=== PATIENT | male | born 1965 | race Caucasian/White ===

== ENCOUNTER 2018-12-07 13:59 | Inpatient (IN) | payer MEDICAID, OTHER ==
[~2018-12-07] VITALS: Ht 172.7 cm; Wt 58.5 kg
[2018-12-07] MEDS ORDERED: SODIUM CHLORIDE 0.9% 1,000 ML IV ONE (14:37)
--- NOTE | 2018-12-07 14:37 | NUR ---
bib [facility] general. history of lung cancer, non compliant with treatment, also history of epilepsy,
--- NOTE | 2018-12-07 14:39 | NUR ---
pt arrived from [facility] with a palmer catheter and 20G right AC IV
[2018-12-07] MEDS ORDERED: LORazepam 2 MG/ML, 1ML ONE (14:44)
--- NOTE | 2018-12-07 14:57 | NUR ---
urine sample sent. blood drawn.
--- NOTE | 2018-12-07 14:59 | NUR ---
FAMILY AT BS.
[2018-12-07] MEDS ORDERED: PLEASE ENTER ALLERGIES MC SCH (15:00)
[2018-12-07] MEDS ORDERED: LORazepam 2 MG/ML, 1ML IVPush ONE (15:00)
--- NOTE | 2018-12-07 15:13 | NUR ---
[facility] RPT FROM [facility]. ASSUMED PT CARE. PT CONFUSED BUT CONVERSES, FOLLOWS COMMANDS, WEAK T/O. VSS. IVF INFUSING W/O DIFFICULTY. MULTIPLE FAMILY MEMBERS AT BEDSIDE. OLDEST SON SUGEY WILL BE SPOKEPERSON FOR FAMILY. CALL LIGHT W/I REACH.
[2018-12-07 15:20] LABS: ALBUMIN 2.2 g/dL (3.4-5.0); ANION GAP 13 mmol/L (5-15); CALCIUM 7.3 mg/dL (8.5-10.1); CHLORIDE 101 mmol/L (98-107); CREATININE 1.16 mg/dL (0.7-1.3)
[2018-12-07 15:29] LABS: TROPONIN I 0.225 ng/mL (0.000-0.045)
[2018-12-07 15:33] LABS: MICROSCOPIC INDICATED
[2018-12-07 15:43] LABS: MEAN CORPUSCULAR VOLUME 102.8 fL (81-97); MEAN PLATELET VOLUME 11.4 fL (7.4-10.4); PLATELET COUNT 60 x10^3/uL (130-400); RED BLOOD COUNT 4.27 x10^6/uL (4.38-5.82); RED CELL DISTRIBUTION WIDTH 13.9 % (9.4-14.8)
[2018-12-07 15:49] LABS: BASOPHILS % (AUTO) 0 % (0-1); EOSINOPHILS % (AUTO) 0 % (1-7); LYMPHOCYTES # (AUTO) 0.32 x10^3/uL (1-3.4); LYMPHOCYTES % (AUTO) 10 % (22-44); MD MORPH REVIEW ONLY; MONOCYTES # (AUTO) 0.04 x10^3/uL (0.2-0.8); MONOCYTES % (AUTO) 1 % (2-9); NEUTROPHILS % (AUTO) 89 % (42-75)
[2018-12-07 15:54] LABS: CULTURE INDICATED? NO
[2018-12-07 15:54] LABS: <PLATELET ESTIMATE> DECREASED; LARGE PLATELETS 1+
--- NOTE | 2018-12-07 18:25 | NUR ---
SUGEY FRANCISCO CELL #[phone]
--- NOTE | 2018-12-07 18:51 | NUR ---
JAYMIE, DAUGHTER [phone]
--- NOTE | 2018-12-07 18:52 | NUR ---
WITH PT VERBAL APPROVAL I UPDATED PTS DAUGHTER TO STATUS AND POC. QUESTIONS ANSWERED.
--- NOTE | 2018-12-07 18:53 | NUR ---
SECURITY CONTACTED TO COME AND COLLECT PTS FONG FOR SAFE KEEPING
--- NOTE | 2018-12-07 19:17 | NUR ---
JONNAAR RPT TO [facility]
[2018-12-07 19:30] LABS: AMPHETAMINE SCREEN, URINE Negative (Negative); BARBITURATE SCREEN, URINE Negative (Negative); BENZODIAZEPINE SCREEN, URINE Negative (Negative); CANNABINOID SCREEN, URINE Negative (Negative); COCAINE SCREEN, URINE Negative (Negative); METHADONE SCREEN, URINE Negative (Negative); OPIATE SCREEN, URINE Negative (Negative)
[2018-12-07 20:24] VITALS: BP 113/68
[2018-12-07] MEDS ORDERED: ALUMINUM/MAG/SIMETHICONE 30 ML UDC PO PRN (20:30)
[2018-12-07] MEDS ORDERED: LABETALOL 5MG/ML, 20ML IV PRN (20:30)
[2018-12-07] MEDS ORDERED: ONDANSETRON 2MG/ML, 2ML IV PRN (20:30)
[2018-12-07] MEDS ORDERED: LORazepam 2 MG/ML, 1ML IV PRN ×4 (20:30)
[2018-12-07] MEDS: PIPERACILLIN/TAZO/PMX 3.375GM 50 ML IV SCH (21:58)
[2018-12-07] MEDS: POTASSIUM CHLORIDE 20 MEQ, MVI ADULT 10 ML, FOLIC ACID 1 MG, MAGNESIUM SULFATE 2 GM in ... IV SCH (23:12)
[2018-12-07] MEDS: HEPARIN 5,000 UNITS/ML, 1ML SQ SCH (23:13)
[2018-12-08] MEDS: LORazepam 2 MG/ML, 1ML IV PRN ×2 (01:39→09:42)
[2018-12-08 01:55] VITALS: BP 137/80
[2018-12-08] MEDS: PIPERACILLIN/TAZO/PMX 3.375GM 50 ML IV SCH ×4 (03:55→22:21)
[2018-12-08 04:30] LABS: ALANINE AMINOTRANSFERASE 57 U/L (12-78); ANION GAP 11 mmol/L (5-15); CALCIUM 7.2 mg/dL (8.5-10.1); CHLORIDE 106 mmol/L (98-107); CREATININE 0.72 mg/dL (0.7-1.3)
[2018-12-08 04:32] LABS: ALKALINE PHOSPHATASE 40 U/L (45-117); BILIRUBIN,TOTAL 0.7 mg/dL (0.2-1.0)
[2018-12-08 04:42] LABS: MEAN CORPUSCULAR HEMOGLOBIN 35.6 pg (27.5-34.5); MEAN CORPUSCULAR HGB CONC 34.4 g/dL (33.2-36.2); MEAN CORPUSCULAR VOLUME 103.5 fL (81-97); RED BLOOD COUNT 4.37 x10^6/uL (4.38-5.82); RED CELL DISTRIBUTION WIDTH 14.1 % (9.4-14.8)
[2018-12-08 04:45] LABS: MD YES; MEAN PLATELET VOLUME 11.9 fL (7.4-10.4); PLATELET COUNT 71 x10^3/uL (130-400)
[2018-12-08 04:48] LABS: LYMPH#(MANUAL) 0.18 x10^3/uL (1-3.4); LYMPHS% (MANUAL) 10 % (22-44); MONOS#(MANUAL) 0.14 x10^3/uL (0.3-2.7); MONOS% (MANUAL) 8 % (2-9); SEG#(MANUAL) 1.48 x10^3/uL (1.8-6.8); SEGS% (MANUAL) 82 % (42-75)
[2018-12-08 04:50] LABS: <PLATELET ESTIMATE> DECREASED; ECHINOCYTES 1+; LARGE PLATELETS 1+
[2018-12-08] MEDS: HEPARIN 5,000 UNITS/ML, 1ML SQ SCH ×2 (05:54→12:08)
[2018-12-08] MEDS: SODIUM CHLORIDE 0.9% 1,000 ML IV SCH ×4 (06:21→21:54)
[2018-12-08 07:03] VITALS: BP 108/72
[2018-12-08] MEDS ORDERED: POTASSIUM CHLORIDE 40 MEQ in SODIUM CHLORIDE 0.9% 500 ML IV ONE (08:30)
[2018-12-08] MEDS: FOLIC ACID 1 MG TABLET PO SCH (09:34)
[2018-12-08] MEDS: THIAMINE 100MG TABLET PO SCH ×2 (09:34→21:00)
[2018-12-08] MEDS ORDERED: SODIUM CHLORIDE 0.9% 1,000ML IVBOLUS ONE (11:00)
[2018-12-08] MEDS: DOXYCYCLINE 100 MG in DEXTROSE 5% 250 ML IV SCH (11:10)
[2018-12-08 13:51] VITALS: BP 101/65
[2018-12-08 16:59] LABS: OCCULT BLOOD POSITIVE (NEGATIVE)
[2018-12-08] MEDS ORDERED: SODIUM CHLORIDE 0.9% 500 ML IV SCH (17:00)
[2018-12-08 18:44] LABS: INTERNATIONAL NORMALIZED RATIO 1.04 (0.93-1.1); PROTHROMBIN TIME 10.9 Seconds (9.6-11.5)
[2018-12-08 19:11] LABS: THYROID STIMULATING HORMONE 0.751 mIU/L (0.358-3.740)
[2018-12-08 19:45] VITALS: BP 110/75
[2018-12-08] MEDS: PANTOPRAZOLE 40 MG IV IVPush SCH (21:52)
[2018-12-08] MEDS: POTASSIUM CHLORIDE 20 MEQ, MVI ADULT 10 ML, FOLIC ACID 1 MG, MAGNESIUM SULFATE 2 GM in ... IV SCH (21:53)
[2018-12-09] MEDS: DOXYCYCLINE 100 MG in DEXTROSE 5% 250 ML IV SCH ×2 (00:13→12:07)
[2018-12-09 02:40] VITALS: BP 120/71
[2018-12-09] MEDS: PIPERACILLIN/TAZO/PMX 3.375GM 50 ML IV SCH ×3 (04:52→17:52)
[2018-12-09 06:03] LABS: ALANINE AMINOTRANSFERASE 43 U/L (12-78); ALBUMIN 1.7 g/dL (3.4-5.0); ANION GAP 6 mmol/L (5-15); CALCIUM 6.9 mg/dL (8.5-10.1); CHLORIDE 117 mmol/L (98-107); CREATININE 0.67 mg/dL (0.7-1.3)
[2018-12-09 06:05] LABS: ALKALINE PHOSPHATASE 38 U/L (45-117); BILIRUBIN,TOTAL 0.7 mg/dL (0.2-1.0); TOTAL PROTEIN 4.9 g/dL (6.4-8.2)
[2018-12-09 06:18] LABS: MEAN CORPUSCULAR HEMOGLOBIN 35.3 pg (27.5-34.5); MEAN CORPUSCULAR HGB CONC 33.8 g/dL (33.2-36.2); MEAN CORPUSCULAR VOLUME 104.4 fL (81-97); MEAN PLATELET VOLUME 10.9 fL (7.4-10.4); PLATELET COUNT 60 x10^3/uL (130-400); RED BLOOD COUNT 3.26 x10^6/uL (4.38-5.82); RED CELL DISTRIBUTION WIDTH 14.6 % (9.4-14.8)
[2018-12-09] MEDS: PANTOPRAZOLE 40 MG IV IVPush SCH ×2 (06:18→22:13)
[2018-12-09 06:49] LABS: MD YES
[2018-12-09 06:52] LABS: MONOS#(MANUAL) 0.09 x10^3/uL (0.3-2.7); MONOS% (MANUAL) 6 % (2-9)
[2018-12-09 06:53] LABS: LYMPH#(MANUAL) 0.26 x10^3/uL (1-3.4); LYMPHS% (MANUAL) 17 % (22-44); PMNS WITH VACUOLES 1+; SEG#(MANUAL) 1.16 x10^3/uL (1.8-6.8); SEGS% (MANUAL) 77 % (42-75)
[2018-12-09 06:54] LABS: <PLATELET ESTIMATE> DECREASED; LARGE PLATELETS 1+
[2018-12-09] MEDS ORDERED: D5%-0.45% NACL+KCL 10MEQ 1,000 ML IV SCH (07:30)
[2018-12-09 07:50] VITALS: BP 116/68
[2018-12-09] MEDS: FOLIC ACID 1 MG TABLET PO SCH (10:02)
[2018-12-09] MEDS: THIAMINE 100MG TABLET PO SCH ×2 (10:02→21:00)
[2018-12-09] MEDS ORDERED: OCTREOTIDE 50 MCG/ML, 1ML (0.05MG/ML) IVPush ONE (14:30)
[2018-12-09 14:48] VITALS: BP 112/64
[2018-12-09] MEDS: OCTREOTIDE 500 MCG in SODIUM CHLORIDE 0.9% 249 ML IV SCH (15:19)
[2018-12-09 18:13] LABS: MD YES; MEAN CORPUSCULAR HEMOGLOBIN 35.6 pg (27.5-34.5); MEAN CORPUSCULAR HGB CONC 34.3 g/dL (33.2-36.2); MEAN CORPUSCULAR VOLUME 103.6 fL (81-97); MEAN PLATELET VOLUME 11.5 fL (7.4-10.4); PLATELET COUNT 62 x10^3/uL (130-400); RED BLOOD COUNT 3.27 x10^6/uL (4.38-5.82); RED CELL DISTRIBUTION WIDTH 14.9 % (9.4-14.8)
[2018-12-09 18:19] LABS: LYMPHS% (MANUAL) 15 % (22-44); MONOS#(MANUAL) 0.16 x10^3/uL (0.3-2.7); MONOS% (MANUAL) 8 % (2-9); NRBC % (MANUAL) 1 % (0-1); REACTIVE LYMPHS # (MANUAL) 0.02 x10^3/uL (0-0); REACTIVE LYMPHS % (MANUAL) 1 % (0-0); SEG#(MANUAL) 1.52 x10^3/uL (1.8-6.8); SEGS% (MANUAL) 76 % (42-75)
[2018-12-09 18:20] LABS: <PLATELET ESTIMATE> DECREASED; LARGE PLATELETS 1+
[2018-12-09 20:30] VITALS: BP 97/60
[2018-12-09 21:30] LABS: MEAN CORPUSCULAR HGB CONC 34.9 g/dL (33.2-36.2); MEAN CORPUSCULAR VOLUME 103.2 fL (81-97); MEAN PLATELET VOLUME 11.2 fL (7.4-10.4); PLATELET COUNT 57 x10^3/uL (130-400); RED BLOOD COUNT 2.94 x10^6/uL (4.38-5.82); RED CELL DISTRIBUTION WIDTH 14.8 % (9.4-14.8)
[2018-12-09 22:06] LABS: BASOPHILS % (AUTO) 0 % (0-1); EOSINOPHILS # (AUTO) 0.01 x10^3/uL (0-0.4); EOSINOPHILS % (AUTO) 1 % (1-7); LYMPHOCYTES # (AUTO) 0.29 x10^3/uL (1-3.4); LYMPHOCYTES % (AUTO) 15 % (22-44); MD MORPH REVIEW ONLY; MONOCYTES # (AUTO) 0.09 x10^3/uL (0.2-0.8); MONOCYTES % (AUTO) 5 % (2-9); NEUTROPHILS # (AUTO) 1.51 x10^3/uL (1.8-6.8); NEUTROPHILS % (AUTO) 79 % (42-75)
[2018-12-09 22:07] LABS: <PLATELET ESTIMATE> DECREASED; LARGE PLATELETS 1+
[2018-12-09] MEDS: POTASSIUM CHLORIDE 20 MEQ, MVI ADULT 10 ML, FOLIC ACID 1 MG, MAGNESIUM SULFATE 2 GM in ... IV SCH (22:13)
[2018-12-10 00:10] VITALS: BP 96/57
[2018-12-10] MEDS: PIPERACILLIN/TAZO/PMX 3.375GM 50 ML IV SCH ×3 (00:54→18:22)
[2018-12-10] MEDS: OCTREOTIDE 500 MCG in SODIUM CHLORIDE 0.9% 249 ML IV SCH (01:31)
[2018-12-10] MEDS: DOXYCYCLINE 100 MG in DEXTROSE 5% 250 ML IV SCH ×2 (01:32→11:35)
[2018-12-10 06:04] LABS: ALANINE AMINOTRANSFERASE 45 U/L (12-78); ALBUMIN 1.6 g/dL (3.4-5.0); ANION GAP 3 mmol/L (5-15); CALCIUM 6.8 mg/dL (8.5-10.1); CHLORIDE 119 mmol/L (98-107)
[2018-12-10 06:07] LABS: ALKALINE PHOSPHATASE 40 U/L (45-117); BILIRUBIN,TOTAL 0.6 mg/dL (0.2-1.0)
[2018-12-10 06:50] VITALS: BP 100/62
[2018-12-10 07:00] LABS: BASOPHILS % (AUTO) 0 % (0-1); EOSINOPHILS # (AUTO) 0.03 x10^3/uL (0-0.4); EOSINOPHILS % (AUTO) 1 % (1-7); LYMPHOCYTES % (AUTO) 21 % (22-44); MD SCAN; MEAN CORPUSCULAR HEMOGLOBIN 35.8 pg (27.5-34.5); MEAN CORPUSCULAR HGB CONC 34.6 g/dL (33.2-36.2); MEAN CORPUSCULAR VOLUME 103.6 fL (81-97); MEAN PLATELET VOLUME 11.1 fL (7.4-10.4); MONOCYTES % (AUTO) 4 % (2-9); NEUTROPHILS # (AUTO) 1.76 x10^3/uL (1.8-6.8); NEUTROPHILS % (AUTO) 74 % (42-75); PLATELET COUNT 55 x10^3/uL (130-400); RED BLOOD COUNT 3.04 x10^6/uL (4.38-5.82)
[2018-12-10] MEDS ORDERED: D5%-0.45% NACL+KCL 10MEQ 1,000 ML IV SCH (07:30)
[2018-12-10] MEDS: PANTOPRAZOLE 40 MG IV IVPush SCH ×2 (08:32→22:35)
[2018-12-10] MEDS: THIAMINE 100MG TABLET PO SCH ×2 (09:00→21:00)
[2018-12-10] MEDS: FOLIC ACID 1 MG TABLET PO SCH (09:00)
[2018-12-10 11:36] LABS: MEAN CORPUSCULAR HEMOGLOBIN 34.6 pg (27.5-34.5); MEAN CORPUSCULAR HGB CONC 33.6 g/dL (33.2-36.2); MEAN PLATELET VOLUME 11.6 fL (7.4-10.4); PLATELET COUNT 59 x10^3/uL (130-400); RED BLOOD COUNT 3.13 x10^6/uL (4.38-5.82); RED CELL DISTRIBUTION WIDTH 15.5 % (9.4-14.8)
[2018-12-10 12:42] LABS: BASOPHILS # (AUTO) 0.01 x10^3/uL (0-0.1); BASOPHILS % (AUTO) 1 % (0-1); EOSINOPHILS # (AUTO) 0.03 x10^3/uL (0-0.4); EOSINOPHILS % (AUTO) 1 % (1-7); LYMPHOCYTES # (AUTO) 0.55 x10^3/uL (1-3.4); LYMPHOCYTES % (AUTO) 20 % (22-44); MD SCAN; MONOCYTES # (AUTO) 0.17 x10^3/uL (0.2-0.8); MONOCYTES % (AUTO) 6 % (2-9); NEUTROPHILS # (AUTO) 1.98 x10^3/uL (1.8-6.8); NEUTROPHILS % (AUTO) 72 % (42-75)
[2018-12-10 13:55] VITALS: BP 102/68
[2018-12-10] MEDS ORDERED: PHENYLEPHRINE 10 MG/ML ONE (14:14)
[2018-12-10] MEDS ORDERED: PROPOFOL 10 MG/ML, 20ML ONE (14:14)
[2018-12-10] MEDS ORDERED: LIDOCAINE-MPF 1%, 2ML ONE (14:14)
[2018-12-10] MEDS ORDERED: EPINEPHRINE SYRINGE 0.1 MG/ML, 10ML ONE (14:46)
[2018-12-10] MEDS ORDERED: MORPHINE SULFATE 4 MG/ML, 1ML IVPush PRN (15:00)
[2018-12-10] MEDS ORDERED: ONDANSETRON 2MG/ML, 2ML IV PRN (15:00)
[2018-12-10] MEDS ORDERED: HALOPERIDOL 5 MG/ML IV PRN (15:00)
[2018-12-10] MEDS ORDERED: ALBUTEROL SULFATE 2.5 MG/3 ML NPPB PRN (15:00)
[2018-12-10] MEDS ORDERED: PROMETHAZINE 25 MG/ML, 1ML IV PRN (15:00)
[2018-12-10] MEDS ORDERED: EPHEDRINE 50 MG/ML, 1ML IVPush PRN (15:00)
[2018-12-10] MEDS ORDERED: MEPERIDINE/PF 25MG/0.5ML IVPush PRN (15:00)
[2018-12-10] MEDS ORDERED: DIAZEPAM 5 MG/ML, 2ML IVPush PRN (15:00)
[2018-12-10] MEDS ORDERED: PROMETHAZINE 12.5 MG SUPP PR PRN (15:00)
[2018-12-10] MEDS ORDERED: LABETALOL 5MG/ML, 20ML IV PRN (15:00)
[2018-12-10] MEDS ORDERED: ONDANSETRON ODT 8 MG PO PRN (15:00)
[2018-12-10] MEDS ORDERED: MIDAZOLAM 1 MG/ML, 2ML IV PRN (15:00)
[2018-12-10] MEDS ORDERED: OXYcodone 5 MG/5 ML ORAL.SOL UDC PO PRN (15:00)
[2018-12-10] MEDS ORDERED: HYDROmorphone 2 MG/ML, 1ML IVPush PRN (15:00)
[2018-12-10] MEDS ORDERED: hydrALAzine 20 MG/ML, 1ML IV PRN (15:00)
[2018-12-10] MEDS ORDERED: FENTANYL PF 100 MCG/2ML IV PRN (15:00)
[2018-12-10] MEDS ORDERED: LACTATED RINGERS 1,000 ML IVBOLUS ONE (15:00)
--- NOTE | 2018-12-10 17:20 | NUR ---
REC: NPO with IV fluids and meds for now due to high risk of aspiration Addendum: 12/10/18 at 1720 by Ramila YOUNGBLOOD Amended: Links added.
[2018-12-10 17:29] LABS: MEAN CORPUSCULAR HEMOGLOBIN 34.8 pg (27.5-34.5); MEAN CORPUSCULAR HGB CONC 33.7 g/dL (33.2-36.2); MEAN CORPUSCULAR VOLUME 103.4 fL (81-97); MEAN PLATELET VOLUME 11.4 fL (7.4-10.4); PLATELET COUNT 56 x10^3/uL (130-400)
[2018-12-10 17:41] LABS: MD YES
[2018-12-10 18:01] LABS: EOS#(MANUAL) 0.02 x10^3/uL (0.0-0.4); EOS% (MANUAL) 1 % (1-7); LYMPHS% (MANUAL) 21 % (22-44); MONOS#(MANUAL) 0.14 x10^3/uL (0.3-2.7); MONOS% (MANUAL) 6 % (2-9); SEG#(MANUAL) 1.73 x10^3/uL (1.8-6.8); SEGS% (MANUAL) 72 % (42-75)
[2018-12-10 18:04] LABS: POLYCHROMASIA 1+
[2018-12-10 18:05] LABS: <PLATELET ESTIMATE> DECREASED
[2018-12-10 18:06] LABS: LARGE PLATELETS 1+
[2018-12-10 19:00] VITALS: BP 119/78
[2018-12-10] MEDS: POTASSIUM CHLORIDE 20 MEQ, MVI ADULT 10 ML, FOLIC ACID 1 MG, MAGNESIUM SULFATE 2 GM in ... IV SCH (20:09)
[2018-12-10 21:47] LABS: MEAN CORPUSCULAR HEMOGLOBIN 35.9 pg (27.5-34.5); MEAN CORPUSCULAR VOLUME 102.8 fL (81-97); MEAN PLATELET VOLUME 11.8 fL (7.4-10.4); PLATELET COUNT 54 x10^3/uL (130-400); RED BLOOD COUNT 2.86 x10^6/uL (4.38-5.82); RED CELL DISTRIBUTION WIDTH 15.2 % (9.4-14.8)
[2018-12-10 23:31] LABS: MD YES
[2018-12-10 23:39] LABS: EOS#(MANUAL) 0.05 x10^3/uL (0.0-0.4); EOS% (MANUAL) 2 % (1-7); LYMPH#(MANUAL) 0.37 x10^3/uL (1-3.4); LYMPHS% (MANUAL) 16 % (22-44); MONOS#(MANUAL) 0.05 x10^3/uL (0.3-2.7); MONOS% (MANUAL) 2 % (2-9); NRBC % (MANUAL) 2 % (0-1); REACTIVE LYMPHS # (MANUAL) 0.07 x10^3/uL (0-0); REACTIVE LYMPHS % (MANUAL) 3 % (0-0); SEG#(MANUAL) 1.77 x10^3/uL (1.8-6.8); SEGS% (MANUAL) 77 % (42-75)
[2018-12-10 23:42] LABS: POLYCHROMASIA 1+
[2018-12-10 23:44] LABS: <PLATELET ESTIMATE> DECREASED; LARGE PLATELETS 1+
[2018-12-11] MEDS: DOXYCYCLINE 100 MG in DEXTROSE 5% 250 ML IV SCH ×3 (00:23→23:44)
[2018-12-11 01:00] VITALS: BP 113/59
[2018-12-11] MEDS: PIPERACILLIN/TAZO/PMX 3.375GM 50 ML IV SCH ×4 (01:27→19:53)
[2018-12-11 07:02] VITALS: BP 118/63
[2018-12-11 07:03] VITALS: BP 117/68
[2018-12-11 07:08] LABS: MEAN CORPUSCULAR HEMOGLOBIN 35.8 pg (27.5-34.5); MEAN CORPUSCULAR VOLUME 102.3 fL (81-97); MEAN PLATELET VOLUME 10.9 fL (7.4-10.4); RED BLOOD COUNT 2.93 x10^6/uL (4.38-5.82); RED CELL DISTRIBUTION WIDTH 15.2 % (9.4-14.8)
[2018-12-11 07:14] LABS: ALBUMIN 1.5 g/dL (3.4-5.0); ANION GAP 4 mmol/L (5-15); CALCIUM 6.4 mg/dL (8.5-10.1); CHLORIDE 116 mmol/L (98-107)
[2018-12-11 07:18] LABS: ALANINE AMINOTRANSFERASE 39 U/L (12-78); ALKALINE PHOSPHATASE 44 U/L (45-117); BILIRUBIN,TOTAL 0.9 mg/dL (0.2-1.0); TOTAL PROTEIN 4.6 g/dL (6.4-8.2)
[2018-12-11 07:26] LABS: PLATELET COUNT 48 x10^3/uL (130-400)
[2018-12-11 07:37] LABS: MD YES
[2018-12-11 07:41] LABS: BAND#(MANUAL) 0.02 x10^3/uL; BANDS%(MANUAL) 1 % (0-7); EOS#(MANUAL) 0.05 x10^3/uL (0.0-0.4); EOS% (MANUAL) 2 % (1-7); LYMPH#(MANUAL) 0.32 x10^3/uL (1-3.4); LYMPHS% (MANUAL) 14 % (22-44); MONOS#(MANUAL) 0.14 x10^3/uL (0.3-2.7); MONOS% (MANUAL) 6 % (2-9); MYELOCYTES# (MANUAL) 0.02 x10^3/uL (0-0); MYELOCYTES% (MANUAL) 1 % (0-0); NRBC % (MANUAL) 2 % (0-1); SEG#(MANUAL) 1.75 x10^3/uL (1.8-6.8); SEGS% (MANUAL) 76 % (42-75)
[2018-12-11 07:43] LABS: PMNS WITH VACUOLES 1+
[2018-12-11 07:44] LABS: <PLATELET ESTIMATE> DECREASED
[2018-12-11 07:45] LABS: LARGE PLATELETS 1+
[2018-12-11] MEDS: FOLIC ACID 1 MG TABLET PO SCH (09:00)
[2018-12-11] MEDS: THIAMINE 100MG TABLET PO SCH ×2 (09:00→21:00)
[2018-12-11] MEDS: PANTOPRAZOLE 40 MG IV IVPush SCH ×2 (11:35→21:19)
[2018-12-11 11:53] LABS: MEAN CORPUSCULAR HEMOGLOBIN 35.5 pg (27.5-34.5); MEAN CORPUSCULAR HGB CONC 33.8 g/dL (33.2-36.2); MEAN CORPUSCULAR VOLUME 104.8 fL (81-97); RED BLOOD COUNT 3.19 x10^6/uL (4.38-5.82); RED CELL DISTRIBUTION WIDTH 15.3 % (9.4-14.8)
[2018-12-11 11:58] LABS: MEAN PLATELET VOLUME 10.2 fL (7.4-10.4)
[2018-12-11 11:59] LABS: PLATELET COUNT 36 x10^3/uL (130-400)
[2018-12-11 12:01] LABS: MD YES
[2018-12-11 12:05] LABS: BAND#(MANUAL) 0.08 x10^3/uL; BANDS%(MANUAL) 3 % (0-7); EOS#(MANUAL) 0.08 x10^3/uL (0.0-0.4); EOS% (MANUAL) 3 % (1-7); LYMPHS% (MANUAL) 12 % (22-44); MONOS#(MANUAL) 0.05 x10^3/uL (0.3-2.7); MONOS% (MANUAL) 2 % (2-9); NRBC % (MANUAL) 2 % (0-1); REACTIVE LYMPHS % (MANUAL) 4 % (0-0); SEGS% (MANUAL) 76 % (42-75)
[2018-12-11 12:07] LABS: <PLATELET ESTIMATE> DECREASED; LARGE PLATELETS 1+
[2018-12-11 13:40] VITALS: BP 122/72
[2018-12-11] MEDS: D5%-0.45% NACL+KCL 10MEQ 1,000 ML IV SCH ×3 (15:27→23:44)
[2018-12-11 17:07] LABS: MEAN CORPUSCULAR HGB CONC 33.1 g/dL (33.2-36.2); MEAN CORPUSCULAR VOLUME 102.7 fL (81-97); MEAN PLATELET VOLUME 12.3 fL (7.4-10.4); PLATELET COUNT 54 x10^3/uL (130-400); RED BLOOD COUNT 3.34 x10^6/uL (4.38-5.82); RED CELL DISTRIBUTION WIDTH 15.6 % (9.4-14.8)
[2018-12-11 17:09] LABS: MD YES
[2018-12-11 17:15] LABS: BAND#(MANUAL) 0.05 x10^3/uL; BANDS%(MANUAL) 2 % (0-7); EOS#(MANUAL) 0.05 x10^3/uL (0.0-0.4); EOS% (MANUAL) 2 % (1-7); LYMPH#(MANUAL) 0.48 x10^3/uL (1-3.4); LYMPHS% (MANUAL) 20 % (22-44); MONOS% (MANUAL) 4 % (2-9); NRBC % (MANUAL) 1 % (0-1); REACTIVE LYMPHS # (MANUAL) 0.02 x10^3/uL (0-0); REACTIVE LYMPHS % (MANUAL) 1 % (0-0); SEGS% (MANUAL) 71 % (42-75)
[2018-12-11 17:16] LABS: PMNS WITH VACUOLES 1+; SMUDGE CELLS 1+; TOXIC GRAN 1+
[2018-12-11 17:17] LABS: <PLATELET ESTIMATE> DECREASED; HYPOCHROMIA 1+; LARGE PLATELETS 1+
[2018-12-11 20:20] VITALS: BP 129/64
[2018-12-11 21:15] LABS: MEAN CORPUSCULAR HEMOGLOBIN 34.4 pg (27.5-34.5); MEAN CORPUSCULAR HGB CONC 32.7 g/dL (33.2-36.2); MEAN CORPUSCULAR VOLUME 105.2 fL (81-97); MEAN PLATELET VOLUME 11.3 fL (7.4-10.4); PLATELET COUNT 55 x10^3/uL (130-400); RED BLOOD COUNT 3.21 x10^6/uL (4.38-5.82); RED CELL DISTRIBUTION WIDTH 15.4 % (9.4-14.8)
[2018-12-11] MEDS: POTASSIUM CHLORIDE 20 MEQ, MVI ADULT 10 ML, FOLIC ACID 1 MG, MAGNESIUM SULFATE 2 GM in ... IV SCH (21:19)
[2018-12-11 22:18] LABS: BASOPHILS # (AUTO) 0.03 x10^3/uL (0-0.1); BASOPHILS % (AUTO) 1 % (0-1); EOSINOPHILS # (AUTO) 0.03 x10^3/uL (0-0.4); EOSINOPHILS % (AUTO) 1 % (1-7); LYMPHOCYTES # (AUTO) 0.97 x10^3/uL (1-3.4); LYMPHOCYTES % (AUTO) 30 % (22-44); MD SCAN; MONOCYTES # (AUTO) 0.15 x10^3/uL (0.2-0.8); MONOCYTES % (AUTO) 5 % (2-9); NEUTROPHILS % (AUTO) 64 % (42-75)
[2018-12-12 00:20] VITALS: BP 126/88
[2018-12-12] MEDS: PIPERACILLIN/TAZO/PMX 3.375GM 50 ML IV SCH ×4 (01:30→20:08)
[2018-12-12 05:04] LABS: MEAN CORPUSCULAR HEMOGLOBIN 35.6 pg (27.5-34.5); MEAN CORPUSCULAR HGB CONC 34.6 g/dL (33.2-36.2); MEAN CORPUSCULAR VOLUME 102.9 fL (81-97); MEAN PLATELET VOLUME 12.1 fL (7.4-10.4); PLATELET COUNT 50 x10^3/uL (130-400); RED BLOOD COUNT 3.23 x10^6/uL (4.38-5.82); RED CELL DISTRIBUTION WIDTH 14.9 % (9.4-14.8)
[2018-12-12 05:12] LABS: ALBUMIN 1.5 g/dL (3.4-5.0); ANION GAP 5 mmol/L (5-15); CALCIUM 6.6 mg/dL (8.5-10.1); CHLORIDE 112 mmol/L (98-107)
[2018-12-12 05:18] LABS: ALANINE AMINOTRANSFERASE 37 U/L (12-78); ALKALINE PHOSPHATASE 57 U/L (45-117); BILIRUBIN,TOTAL 1.2 mg/dL (0.2-1.0); CREATININE 0.65 mg/dL (0.7-1.3); TOTAL PROTEIN 5.3 g/dL (6.4-8.2)
[2018-12-12 05:59] LABS: MD YES
[2018-12-12 06:02] LABS: BAND#(MANUAL) 0.12 x10^3/uL; BANDS%(MANUAL) 4 % (0-7); EOS#(MANUAL) 0.06 x10^3/uL (0.0-0.4); EOS% (MANUAL) 2 % (1-7); LYMPHS% (MANUAL) 16 % (22-44); MONOS#(MANUAL) 0.22 x10^3/uL (0.3-2.7); MONOS% (MANUAL) 7 % (2-9); NRBC % (MANUAL) 1 % (0-1); REACTIVE LYMPHS # (MANUAL) 0.06 x10^3/uL (0-0); REACTIVE LYMPHS % (MANUAL) 2 % (0-0); SEG#(MANUAL) 2.14 x10^3/uL (1.8-6.8); SEGS% (MANUAL) 69 % (42-75)
[2018-12-12 06:03] LABS: PMNS WITH VACUOLES 1+; SMUDGE CELLS 1+; TOXIC GRAN 1+
[2018-12-12 06:06] LABS: <PLATELET ESTIMATE> DECREASED
[2018-12-12 06:09] LABS: POLYCHROMASIA 1+
[2018-12-12] MEDS ORDERED: POTASSIUM CHLORIDE 40 MEQ in SODIUM CHLORIDE 0.9% 500 ML IV ONE ×3 (07:00→13:00)
[2018-12-12] MEDS: FOLIC ACID 1 MG TABLET PO SCH (07:17)
[2018-12-12] MEDS: THIAMINE 100MG TABLET PO SCH ×2 (07:18→20:10)
[2018-12-12] MEDS ORDERED: D5%-0.45% NACL+KCL 10MEQ 1,000 ML IV SCH (07:30)
[2018-12-12 07:42] VITALS: BP 145/70
[2018-12-12] MEDS: PANTOPRAZOLE 40 MG IV IVPush SCH ×2 (10:38→22:27)
[2018-12-12] MEDS ORDERED: PHARMACOKINETIC MONITORING MC PRN (11:00)
[2018-12-12] MEDS ORDERED: PHARMACOKINETIC CONSULTATION MC ONE (11:00)
[2018-12-12] MEDS ORDERED: VANCOMYCIN PER PHARMACY MC PRN (11:00)
[2018-12-12] MEDS: VANCOMYCIN 1,400 MG in SODIUM CHLORIDE 0.9% 250 ML IV SCH ×2 (11:45→23:41)
[2018-12-12] MEDS ORDERED: SINCALIDE (KINEVAC) 5 MCG ONE (11:49)
[2018-12-12 12:15] VITALS: BP 126/70
[2018-12-12] MEDS: DOXYCYCLINE 100 MG in DEXTROSE 5% 250 ML IV SCH (12:18)
[2018-12-12 19:42] VITALS: BP 121/73
[2018-12-12] MEDS: POTASSIUM CHLORIDE 20 MEQ, MVI ADULT 10 ML, FOLIC ACID 1 MG, MAGNESIUM SULFATE 2 GM in ... IV SCH (21:22)
[2018-12-12] MEDS: D5%-0.45% NACL+KCL 10MEQ 1,000 ML IV SCH (22:04)
[2018-12-13] MEDS: DOXYCYCLINE 100 MG in DEXTROSE 5% 250 ML IV SCH ×2 (00:23→12:24)
[2018-12-13 01:26] VITALS: BP 127/74
[2018-12-13] MEDS: PIPERACILLIN/TAZO/PMX 3.375GM 50 ML IV SCH ×4 (02:11→21:03)
[2018-12-13 07:04] LABS: ALBUMIN 1.3 g/dL (3.4-5.0); ANION GAP 6 mmol/L (5-15); CALCIUM 6.4 mg/dL (8.5-10.1); CHLORIDE 117 mmol/L (98-107)
[2018-12-13 07:05] VITALS: BP 139/76
[2018-12-13 07:10] LABS: ALANINE AMINOTRANSFERASE 38 U/L (12-78); ALKALINE PHOSPHATASE 70 U/L (45-117); TOTAL PROTEIN 5.4 g/dL (6.4-8.2)
[2018-12-13] MEDS: FOLIC ACID 1 MG TABLET PO SCH (09:00)
[2018-12-13] MEDS: THIAMINE 100MG TABLET PO SCH ×2 (09:00→21:02)
[2018-12-13 09:35] LABS: MEAN CORPUSCULAR HEMOGLOBIN 34.7 pg (27.5-34.5); MEAN CORPUSCULAR HGB CONC 34.1 g/dL (33.2-36.2); MEAN CORPUSCULAR VOLUME 101.7 fL (81-97); MEAN PLATELET VOLUME 11.7 fL (7.4-10.4); RED BLOOD COUNT 3.09 x10^6/uL (4.38-5.82); RED CELL DISTRIBUTION WIDTH 15.5 % (9.4-14.8)
[2018-12-13 09:38] LABS: BASOPHILS % (AUTO) 0 % (0-1); EOSINOPHILS # (AUTO) 0.03 x10^3/uL (0-0.4); EOSINOPHILS % (AUTO) 1 % (1-7); LYMPHOCYTES # (AUTO) 1.15 x10^3/uL (1-3.4); LYMPHOCYTES % (AUTO) 26 % (22-44); MD SCAN; MONOCYTES # (AUTO) 0.12 x10^3/uL (0.2-0.8); MONOCYTES % (AUTO) 3 % (2-9); NEUTROPHILS # (AUTO) 3.19 x10^3/uL (1.8-6.8); NEUTROPHILS % (AUTO) 71 % (42-75)
[2018-12-13 09:39] LABS: PLATELET COUNT 44 x10^3/uL (130-400)
[2018-12-13] MEDS ORDERED: GADOBUTROL 7.5 MMOL/7.5 ML PFS ONE (11:25)
[2018-12-13] MEDS: PANTOPRAZOLE 40 MG IV IVPush SCH ×2 (12:24→23:46)
[2018-12-13 13:12] VITALS: BP 129/70
[2018-12-13] MEDS: VANCOMYCIN 1,400 MG in SODIUM CHLORIDE 0.9% 250 ML IV SCH (13:40)
[2018-12-13] MEDS: LACTULOSE 10 GM/15 ML UDC PO SCH ×2 (15:30→21:02)
[2018-12-13] MEDS: D5%-0.45% NACL+KCL 10MEQ 1,000 ML IV SCH (17:59)
[2018-12-13 19:03] VITALS: BP 126/69
[2018-12-13] MEDS ORDERED: ZIPRASIDONE 20 MG INJ IM ONE (22:00)
[2018-12-13] MEDS: POTASSIUM CHLORIDE 20 MEQ, MVI ADULT 10 ML, FOLIC ACID 1 MG, MAGNESIUM SULFATE 2 GM in ... IV SCH (23:36)
[2018-12-14] MEDS: DOXYCYCLINE 100 MG in DEXTROSE 5% 250 ML IV SCH ×2 (00:27→16:24)
[2018-12-14 00:46] VITALS: BP 112/67
[2018-12-14] MEDS: VANCOMYCIN 1,400 MG in SODIUM CHLORIDE 0.9% 250 ML IV SCH ×3 (01:37→23:54)
[2018-12-14] MEDS: PIPERACILLIN/TAZO/PMX 3.375GM 50 ML IV SCH ×5 (03:19→20:12)
[2018-12-14] MEDS: LACTULOSE 10 GM/15 ML UDC PO SCH (08:07)
[2018-12-14 08:38] VITALS: BP 129/71
[2018-12-14] MEDS: THIAMINE 100MG TABLET PO SCH ×2 (09:00→20:12)
[2018-12-14] MEDS ORDERED: LACTULOSE 10 GM/15 ML UDC PO PRN (09:00)
[2018-12-14] MEDS: FOLIC ACID 1 MG TABLET PO SCH (09:00)
[2018-12-14] MEDS: PANTOPRAZOLE 40 MG IV IVPush SCH (11:23)
[2018-12-14 12:09] VITALS: BP 115/66
[2018-12-14 12:10] LABS: CHLORIDE 113 mmol/L (98-107)
[2018-12-14 12:20] LABS: ALANINE AMINOTRANSFERASE 31 U/L (12-78); ALBUMIN 1.4 g/dL (3.4-5.0); ALKALINE PHOSPHATASE 69 U/L (45-117); ANION GAP 6 mmol/L (5-15); BILIRUBIN,TOTAL 1.2 mg/dL (0.2-1.0); CALCIUM 6.5 mg/dL (8.5-10.1); CREATININE 0.51 mg/dL (0.7-1.3); TOTAL PROTEIN 5.5 g/dL (6.4-8.2)
[2018-12-14 12:27] LABS: MEAN CORPUSCULAR HGB CONC 33.6 g/dL (33.2-36.2); MEAN CORPUSCULAR VOLUME 101.2 fL (81-97); MEAN PLATELET VOLUME 12.8 fL (7.4-10.4); RED BLOOD COUNT 2.89 x10^6/uL (4.38-5.82); RED CELL DISTRIBUTION WIDTH 15.2 % (9.4-14.8)
[2018-12-14 12:29] LABS: BASOPHILS # (AUTO) 0.03 x10^3/uL (0-0.1); BASOPHILS % (AUTO) 1 % (0-1); EOSINOPHILS # (AUTO) 0.01 x10^3/uL (0-0.4); EOSINOPHILS % (AUTO) 0 % (1-7); LYMPHOCYTES # (AUTO) 1.47 x10^3/uL (1-3.4); LYMPHOCYTES % (AUTO) 27 % (22-44); MD SCAN; MONOCYTES # (AUTO) 0.05 x10^3/uL (0.2-0.8); MONOCYTES % (AUTO) 1 % (2-9); NEUTROPHILS # (AUTO) 3.87 x10^3/uL (1.8-6.8); NEUTROPHILS % (AUTO) 71 % (42-75)
[2018-12-14 12:31] LABS: PLATELET COUNT 48 x10^3/uL (130-400)
[2018-12-14] MEDS: PANTOPRAZOLE GRAN. PKT 40 MG PO SCH (20:12)
[2018-12-14 20:32] VITALS: BP 112/67
[2018-12-14] MEDS ORDERED: FUROSEMIDE 20 MG/2 ML IV ONE (21:30)
[2018-12-14] MEDS: POTASSIUM CHLORIDE 20 MEQ, MVI ADULT 10 ML, FOLIC ACID 1 MG, MAGNESIUM SULFATE 2 GM in ... IV SCH (22:43)
[2018-12-15 00:44] VITALS: BP 125/69
[2018-12-15] MEDS: PIPERACILLIN/TAZO/PMX 3.375GM 50 ML IV SCH ×4 (03:31→21:35)
[2018-12-15] MEDS: DOXYCYCLINE 100 MG in DEXTROSE 5% 250 ML IV SCH ×2 (04:09→16:00)
[2018-12-15 05:49] LABS: BASOPHILS # (AUTO) 0.04 x10^3/uL (0-0.1); BASOPHILS % (AUTO) 1 % (0-1); EOSINOPHILS # (AUTO) 0.02 x10^3/uL (0-0.4); EOSINOPHILS % (AUTO) 0 % (1-7); LYMPHOCYTES # (AUTO) 1.64 x10^3/uL (1-3.4); LYMPHOCYTES % (AUTO) 27 % (22-44); MD NO; MEAN CORPUSCULAR HEMOGLOBIN 35.5 pg (27.5-34.5); MEAN CORPUSCULAR HGB CONC 35.3 g/dL (33.2-36.2); MEAN CORPUSCULAR VOLUME 100.6 fL (81-97); MEAN PLATELET VOLUME 12.2 fL (7.4-10.4); MONOCYTES # (AUTO) 0.09 x10^3/uL (0.2-0.8); MONOCYTES % (AUTO) 1 % (2-9); NEUTROPHILS # (AUTO) 4.39 x10^3/uL (1.8-6.8); NEUTROPHILS % (AUTO) 71 % (42-75); PLATELET COUNT 50 x10^3/uL (130-400); RED BLOOD COUNT 2.58 x10^6/uL (4.38-5.82); RED CELL DISTRIBUTION WIDTH 15.1 % (9.4-14.8)
[2018-12-15 05:56] LABS: ALBUMIN 1.3 g/dL (3.4-5.0); ANION GAP 4 mmol/L (5-15); CALCIUM 6.6 mg/dL (8.5-10.1); CHLORIDE 112 mmol/L (98-107)
[2018-12-15 06:00] LABS: ALANINE AMINOTRANSFERASE 26 U/L (12-78); ALKALINE PHOSPHATASE 75 U/L (45-117); BILIRUBIN,TOTAL 1.2 mg/dL (0.2-1.0); CREATININE 0.62 mg/dL (0.7-1.3); TOTAL PROTEIN 5.2 g/dL (6.4-8.2)
[2018-12-15] MEDS ORDERED: POTASSIUM CHLORIDE 20 MEQ TAB.ER.PRT PO ONE (07:00)
[2018-12-15] MEDS ORDERED: POTASSIUM CHLORIDE 40 MEQ in SODIUM CHLORIDE 0.9% 500 ML IV ONE ×3 (07:00→22:00)
[2018-12-15] MEDS: PANTOPRAZOLE GRAN. PKT 40 MG PO SCH ×2 (07:30→16:30)
[2018-12-15 07:52] VITALS: BP 116/73
[2018-12-15] MEDS: THIAMINE 100MG TABLET PO SCH ×2 (07:57→21:35)
[2018-12-15] MEDS: FUROSEMIDE 40 MG/4 ML IV SCH ×2 (07:58→16:56)
[2018-12-15] MEDS: FOLIC ACID 1 MG TABLET PO SCH (07:58)
[2018-12-15] MEDS: POTASSIUM CHLORIDE 20 MEQ TAB.ER.PRT PO SCH ×3 (07:59→21:35)
[2018-12-15] MEDS: VANCOMYCIN 1,400 MG in SODIUM CHLORIDE 0.9% 250 ML IV SCH ×2 (11:57→23:37)
[2018-12-15 13:35] LABS: ANION GAP 4 mmol/L (5-15); CALCIUM 6.7 mg/dL (8.5-10.1); CHLORIDE 113 mmol/L (98-107); CREATININE 0.71 mg/dL (0.7-1.3)
[2018-12-15 14:05] VITALS: BP 120/78
[2018-12-15] MEDS ORDERED: POTASSIUM PHOSPHATE 44 MEQ in SODIUM CHLORIDE 0.9% 500 ML IV ONE ×4 (14:30→23:00)
[2018-12-15 18:01] LABS: ANION GAP 6 mmol/L (5-15); CHLORIDE 111 mmol/L (98-107); CREATININE 0.85 mg/dL (0.7-1.3)
[2018-12-15 19:25] VITALS: BP 115/69
[2018-12-15 20:16] LABS: ANION GAP 6 mmol/L (5-15); CHLORIDE 112 mmol/L (98-107); CREATININE 0.75 mg/dL (0.7-1.3)
[2018-12-16 01:24] VITALS: BP 147/70
[2018-12-16 02:32] LABS: MEAN CORPUSCULAR HEMOGLOBIN 33.9 pg (27.5-34.5); MEAN CORPUSCULAR HGB CONC 33.1 g/dL (33.2-36.2); MEAN CORPUSCULAR VOLUME 102.3 fL (81-97); MEAN PLATELET VOLUME 11.7 fL (7.4-10.4); PLATELET COUNT 58 x10^3/uL (130-400); RED BLOOD COUNT 2.57 x10^6/uL (4.38-5.82); RED CELL DISTRIBUTION WIDTH 15.2 % (9.4-14.8)
[2018-12-16 02:40] LABS: ALANINE AMINOTRANSFERASE 25 U/L (12-78); ALBUMIN 1.4 g/dL (3.4-5.0); ANION GAP 3 mmol/L (5-15); CALCIUM 6.7 mg/dL (8.5-10.1); CHLORIDE 116 mmol/L (98-107)
[2018-12-16 02:42] LABS: ALKALINE PHOSPHATASE 90 U/L (45-117); BILIRUBIN,TOTAL 1.1 mg/dL (0.2-1.0); CREATININE 0.64 mg/dL (0.7-1.3); TOTAL PROTEIN 5.4 g/dL (6.4-8.2)
[2018-12-16 02:54] LABS: BASOPHILS % (AUTO) 0 % (0-1); EOSINOPHILS # (AUTO) 0.02 x10^3/uL (0-0.4); EOSINOPHILS % (AUTO) 0 % (1-7); LYMPHOCYTES # (AUTO) 1.76 x10^3/uL (1-3.4); LYMPHOCYTES % (AUTO) 25 % (22-44); MD SCAN; MONOCYTES # (AUTO) 0.16 x10^3/uL (0.2-0.8); MONOCYTES % (AUTO) 2 % (2-9); NEUTROPHILS # (AUTO) 5.07 x10^3/uL (1.8-6.8); NEUTROPHILS % (AUTO) 72 % (42-75)
[2018-12-16] MEDS: PIPERACILLIN/TAZO/PMX 3.375GM 50 ML IV SCH ×3 (03:31→15:56)
[2018-12-16] MEDS: DOXYCYCLINE 100 MG in DEXTROSE 5% 250 ML IV SCH ×2 (04:13→17:31)
[2018-12-16] MEDS: POTASSIUM CHLORIDE 20 MEQ TAB.ER.PRT PO SCH ×2 (06:02→12:33)
[2018-12-16] MEDS: ALBUMIN HUMAN 25% 50 ML IV SCH ×3 (07:00→20:58)
[2018-12-16] MEDS ORDERED: POTASSIUM CHLORIDE 40 MEQ in SODIUM CHLORIDE 0.9% 500 ML IV ONE (07:00)
[2018-12-16] MEDS ORDERED: POTASSIUM PHOSPHATE 44 MEQ in SODIUM CHLORIDE 0.9% 500 ML IV ONE (07:00)
[2018-12-16] MEDS ORDERED: CALCIUM CHLORIDE 13.6 MEQ in SODIUM CHLORIDE 0.9% 100 ML IV ONE (07:00)
[2018-12-16 08:07] VITALS: BP 142/73
[2018-12-16] MEDS: FOLIC ACID 1 MG TABLET PO SCH (08:28)
[2018-12-16] MEDS: PANTOPRAZOLE GRAN. PKT 40 MG PO SCH ×2 (08:29→18:23)
[2018-12-16] MEDS: CALCIUM CARBONATE 500 MG TAB.CHEW PO SCH ×2 (08:29→20:29)
[2018-12-16] MEDS: FUROSEMIDE 40 MG/4 ML IV SCH (08:29)
[2018-12-16] MEDS: THIAMINE 100MG TABLET PO SCH ×2 (08:29→20:29)
[2018-12-16 08:43] LABS: ANION GAP 4 mmol/L (5-15); CALCIUM 6.7 mg/dL (8.5-10.1); CHLORIDE 116 mmol/L (98-107); CREATININE 0.59 mg/dL (0.7-1.3)
[2018-12-16] MEDS: VANCOMYCIN 1,400 MG in SODIUM CHLORIDE 0.9% 250 ML IV SCH (11:02)
--- NOTE | 2018-12-16 11:47 | NUR ---
Green Activity Sheet posted in room to include staff to adjust patient into chair position on the bed x 3/day Addendum: 12/16/18 at 1148 by NAMITA DOWNING PT Amended: Links added.
[2018-12-16 13:06] VITALS: BP 139/78
[2018-12-16 14:29] LABS: ANION GAP 5 mmol/L (5-15); CALCIUM 7.7 mg/dL (8.5-10.1); CHLORIDE 116 mmol/L (98-107)
[2018-12-16 14:30] LABS: CREATININE 0.62 mg/dL (0.7-1.3)
[2018-12-16] MEDS: AMPICILLIN/SULBACTAM 1,500 MG in SODIUM CHLORIDE 0.9% 50 ML IV SCH (18:40)
[2018-12-16 19:39] VITALS: BP 140/71
[2018-12-16 21:27] LABS: ANION GAP 5 mmol/L (5-15); CALCIUM 7.6 mg/dL (8.5-10.1); CHLORIDE 116 mmol/L (98-107); CREATININE 0.67 mg/dL (0.7-1.3)
[2018-12-17] MEDS: AMPICILLIN/SULBACTAM 1,500 MG in SODIUM CHLORIDE 0.9% 50 ML IV SCH ×2 (00:39→06:30)
[2018-12-17 01:27] VITALS: BP 142/77
[2018-12-17 02:48] LABS: MEAN CORPUSCULAR HEMOGLOBIN 34.1 pg (27.5-34.5); MEAN CORPUSCULAR HGB CONC 33.4 g/dL (33.2-36.2); MEAN CORPUSCULAR VOLUME 102.2 fL (81-97); MEAN PLATELET VOLUME 11.5 fL (7.4-10.4); PLATELET COUNT 65 x10^3/uL (130-400); RED BLOOD COUNT 2.46 x10^6/uL (4.38-5.82); RED CELL DISTRIBUTION WIDTH 14.6 % (9.4-14.8)
[2018-12-17 02:57] LABS: ALANINE AMINOTRANSFERASE 23 U/L (12-78); ALBUMIN 1.8 g/dL (3.4-5.0); ANION GAP 5 mmol/L (5-15); CALCIUM 7.7 mg/dL (8.5-10.1); CHLORIDE 116 mmol/L (98-107)
[2018-12-17 02:59] LABS: ALKALINE PHOSPHATASE 92 U/L (45-117); BILIRUBIN,TOTAL 1.4 mg/dL (0.2-1.0); TOTAL PROTEIN 5.9 g/dL (6.4-8.2)
[2018-12-17 03:02] LABS: BASOPHILS % (AUTO) 0 % (0-1); EOSINOPHILS # (AUTO) 0.03 x10^3/uL (0-0.4); EOSINOPHILS % (AUTO) 1 % (1-7); LYMPHOCYTES # (AUTO) 1.83 x10^3/uL (1-3.4); LYMPHOCYTES % (AUTO) 27 % (22-44); MD SCAN; MONOCYTES # (AUTO) 0.07 x10^3/uL (0.2-0.8); MONOCYTES % (AUTO) 1 % (2-9); NEUTROPHILS # (AUTO) 4.95 x10^3/uL (1.8-6.8); NEUTROPHILS % (AUTO) 72 % (42-75)
[2018-12-17] MEDS: ALBUMIN HUMAN 25% 50 ML IV SCH (03:04)
[2018-12-17] MEDS: DOXYCYCLINE 100 MG in DEXTROSE 5% 250 ML IV SCH ×2 (04:16→16:46)
[2018-12-17 06:51] VITALS: BP 139/79
[2018-12-17] MEDS ORDERED: POTASSIUM PHOSPHATE 44 MEQ in SODIUM CHLORIDE 0.9% 500 ML IV ONE (07:00)
[2018-12-17 07:38] VITALS: BP 132/74
[2018-12-17 07:57] LABS: ANION GAP 4 mmol/L (5-15); CALCIUM 7.5 mg/dL (8.5-10.1); CHLORIDE 116 mmol/L (98-107); CREATININE 0.59 mg/dL (0.7-1.3)
[2018-12-17] MEDS: FUROSEMIDE 40 MG/4 ML IV SCH (08:10)
[2018-12-17] MEDS ORDERED: VANCOMYCIN PER PHARMACY MC PRN (10:30)
[2018-12-17 11:01] VITALS: BP 126/71
[2018-12-17] MEDS: POTASSIUM CHLORIDE 20 MEQ TAB.ER.PRT PO SCH (11:08)
[2018-12-17] MEDS: CALCIUM CARBONATE 500 MG TAB.CHEW PO SCH ×2 (11:09→20:29)
[2018-12-17] MEDS: METOPROLOL TARTRATE 25 MG TABLET PO SCH ×2 (11:09→17:44)
[2018-12-17] MEDS: THIAMINE 100MG TABLET PO SCH ×2 (11:10→20:29)
[2018-12-17] MEDS: GUAIFENESIN 200 MG TABLET PO SCH ×4 (11:10→20:29)
[2018-12-17] MEDS: FOLIC ACID 1 MG TABLET PO SCH (11:10)
[2018-12-17] MEDS: PANTOPRAZOLE GRAN. PKT 40 MG PO SCH ×2 (11:11→17:44)
[2018-12-17] MEDS: ACETAMINOPHEN 325 MG TABLET PO PRN (11:55)
[2018-12-17] MEDS: PIPERACILLIN/TAZO/PMX 4.5GM 100 ML IV SCH ×3 (11:55→23:21)
[2018-12-17] MEDS: ALBUMIN HUMAN 25% 100 ML IV SCH ×2 (13:20→19:43)
[2018-12-17 13:25] VITALS: BP 111/68
[2018-12-17 14:49] LABS: ANION GAP 5 mmol/L (5-15); CALCIUM 7.6 mg/dL (8.5-10.1); CHLORIDE 116 mmol/L (98-107); CREATININE 0.56 mg/dL (0.7-1.3)
[2018-12-17] MEDS: VANCOMYCIN 1,400 MG in SODIUM CHLORIDE 0.9% 250 ML IV SCH (15:04)
[2018-12-17 19:08] VITALS: BP 133/73
[2018-12-17 20:51] LABS: ANION GAP 5 mmol/L (5-15); CALCIUM 7.7 mg/dL (8.5-10.1); CHLORIDE 116 mmol/L (98-107); CREATININE 0.63 mg/dL (0.7-1.3)
[2018-12-18] MEDS: VANCOMYCIN 1,400 MG in SODIUM CHLORIDE 0.9% 250 ML IV SCH ×2 (00:27→13:04)
[2018-12-18 00:57] VITALS: BP 118/69
[2018-12-18] MEDS: ALBUMIN HUMAN 25% 100 ML IV SCH (02:05)
[2018-12-18] MEDS: DOXYCYCLINE 100 MG in DEXTROSE 5% 250 ML IV SCH ×2 (04:07→17:19)
[2018-12-18 05:25] VITALS: BP 135/74
[2018-12-18] MEDS: GUAIFENESIN 200 MG TABLET PO SCH ×4 (05:26→20:12)
[2018-12-18] MEDS: METOPROLOL TARTRATE 25 MG TABLET PO SCH ×2 (05:26→17:21)
[2018-12-18] MEDS: PIPERACILLIN/TAZO/PMX 4.5GM 100 ML IV SCH ×4 (05:27→23:12)
[2018-12-18 07:47] VITALS: BP 132/73
[2018-12-18 08:34] LABS: ALANINE AMINOTRANSFERASE 19 U/L (12-78); ALBUMIN 2.3 g/dL (3.4-5.0); ANION GAP 2 mmol/L (5-15); CALCIUM 7.8 mg/dL (8.5-10.1); CHLORIDE 116 mmol/L (98-107); CREATININE 0.55 mg/dL (0.7-1.3)
[2018-12-18 08:36] LABS: ALKALINE PHOSPHATASE 75 U/L (45-117); TOTAL PROTEIN 5.7 g/dL (6.4-8.2)
[2018-12-18] MEDS: CALCIUM CARBONATE 500 MG TAB.CHEW PO SCH ×2 (09:08→20:12)
[2018-12-18] MEDS: POTASSIUM CHLORIDE 20 MEQ TAB.ER.PRT PO SCH (09:09)
[2018-12-18] MEDS: FUROSEMIDE 40 MG/4 ML IV SCH (09:09)
[2018-12-18] MEDS: FOLIC ACID 1 MG TABLET PO SCH (09:09)
[2018-12-18] MEDS: THIAMINE 100MG TABLET PO SCH ×2 (09:09→20:12)
[2018-12-18 09:12] LABS: MEAN CORPUSCULAR HEMOGLOBIN 33.7 pg (27.5-34.5); MEAN CORPUSCULAR HGB CONC 33.2 g/dL (33.2-36.2); MEAN CORPUSCULAR VOLUME 101.6 fL (81-97); MEAN PLATELET VOLUME 10.7 fL (7.4-10.4); PLATELET COUNT 70 x10^3/uL (130-400); RED BLOOD COUNT 2.17 x10^6/uL (4.38-5.82); RED CELL DISTRIBUTION WIDTH 15.4 % (9.4-14.8)
[2018-12-18 09:16] LABS: HEMOGRAM NOTE RECHECKED
[2018-12-18] MEDS: PANTOPRAZOLE GRAN. PKT 40 MG PO SCH ×2 (09:25→17:21)
[2018-12-18 09:34] LABS: MD SCAN
[2018-12-18 09:35] LABS: BASOPHILS # (AUTO) 0.05 x10^3/uL (0-0.1); BASOPHILS % (AUTO) 1 % (0-1); EOSINOPHILS # (AUTO) 0.04 x10^3/uL (0-0.4); EOSINOPHILS % (AUTO) 1 % (1-7); LYMPHOCYTES # (AUTO) 1.27 x10^3/uL (1-3.4); LYMPHOCYTES % (AUTO) 28 % (22-44); MONOCYTES # (AUTO) 0.08 x10^3/uL (0.2-0.8); MONOCYTES % (AUTO) 2 % (2-9); NEUTROPHILS # (AUTO) 3.14 x10^3/uL (1.8-6.8); NEUTROPHILS % (AUTO) 69 % (42-75)
[2018-12-18 14:19] VITALS: BP 136/78
[2018-12-18 18:40] LABS: MEAN CORPUSCULAR HGB CONC 34.5 g/dL (33.2-36.2); MEAN CORPUSCULAR VOLUME 101.4 fL (81-97); PLATELET COUNT 75 x10^3/uL (130-400); RED BLOOD COUNT 2.01 x10^6/uL (4.38-5.82); RED CELL DISTRIBUTION WIDTH 15.1 % (9.4-14.8)
[2018-12-18 19:13] LABS: MD YES
[2018-12-18 19:20] LABS: BAND#(MANUAL) 0.08 x10^3/uL; BANDS%(MANUAL) 2 % (0-7); LYMPH#(MANUAL) 0.74 x10^3/uL (1-3.4); LYMPHS% (MANUAL) 18 % (22-44); MONOS#(MANUAL) 0.21 x10^3/uL (0.3-2.7); MONOS% (MANUAL) 5 % (2-9); SEG#(MANUAL) 3.08 x10^3/uL (1.8-6.8); SEGS% (MANUAL) 75 % (42-75)
[2018-12-18 19:21] LABS: ANISOCYTOSIS 1+; POLYCHROMASIA 1+
[2018-12-18 19:23] LABS: <PLATELET ESTIMATE> DECREASED; LARGE PLATELETS 1+
[2018-12-18 20:02] VITALS: BP 122/71
[2018-12-19] VITALS (10 sets, daily range): BP systolic 113–130; BP diastolic 59–69
[2018-12-19] MEDS: VANCOMYCIN 1,400 MG in SODIUM CHLORIDE 0.9% 250 ML IV SCH ×3 (00:48→23:29)
[2018-12-19] MEDS: DOXYCYCLINE 100 MG in DEXTROSE 5% 250 ML IV SCH ×2 (04:20→16:00)
[2018-12-19] MEDS: METOPROLOL TARTRATE 25 MG TABLET PO SCH (05:35)
[2018-12-19] MEDS: PIPERACILLIN/TAZO/PMX 4.5GM 100 ML IV SCH ×4 (05:36→23:28)
[2018-12-19 05:38] LABS: MEAN CORPUSCULAR HEMOGLOBIN 34.4 pg (27.5-34.5); MEAN CORPUSCULAR HGB CONC 33.7 g/dL (33.2-36.2); MEAN CORPUSCULAR VOLUME 102.2 fL (81-97); MEAN PLATELET VOLUME 10.5 fL (7.4-10.4); PLATELET COUNT 75 x10^3/uL (130-400); RED BLOOD COUNT 1.89 x10^6/uL (4.38-5.82); RED CELL DISTRIBUTION WIDTH 15.2 % (9.4-14.8)
[2018-12-19 05:40] LABS: ALBUMIN 1.8 g/dL (3.4-5.0); ANION GAP 6 mmol/L (5-15); CALCIUM 7.5 mg/dL (8.5-10.1); CHLORIDE 114 mmol/L (98-107)
[2018-12-19 05:44] LABS: ALANINE AMINOTRANSFERASE 17 U/L (12-78); ALKALINE PHOSPHATASE 85 U/L (45-117); BILIRUBIN,TOTAL 1.3 mg/dL (0.2-1.0); CREATININE 0.62 mg/dL (0.7-1.3); TOTAL PROTEIN 5.2 g/dL (6.4-8.2)
[2018-12-19 05:59] LABS: BASOPHILS # (AUTO) 0.01 x10^3/uL (0-0.1); BASOPHILS % (AUTO) 0 % (0-1); EOSINOPHILS # (AUTO) 0.04 x10^3/uL (0-0.4); EOSINOPHILS % (AUTO) 1 % (1-7); LYMPHOCYTES % (AUTO) 28 % (22-44); MD SCAN; MONOCYTES # (AUTO) 0.09 x10^3/uL (0.2-0.8); MONOCYTES % (AUTO) 2 % (2-9); NEUTROPHILS # (AUTO) 2.49 x10^3/uL (1.8-6.8); NEUTROPHILS % (AUTO) 69 % (42-75)
[2018-12-19] MEDS: GUAIFENESIN 200 MG TABLET PO SCH ×4 (06:17→20:36)
[2018-12-19] MEDS: POTASSIUM CHLORIDE 20 MEQ TAB.ER.PRT PO SCH (09:00)
[2018-12-19] MEDS: FOLIC ACID 1 MG TABLET PO SCH (09:00)
[2018-12-19 09:12] LABS: MEAN CORPUSCULAR HEMOGLOBIN 34.3 pg (27.5-34.5); MEAN CORPUSCULAR HGB CONC 33.8 g/dL (33.2-36.2); MEAN CORPUSCULAR VOLUME 101.6 fL (81-97); MEAN PLATELET VOLUME 10.2 fL (7.4-10.4); PLATELET COUNT 84 x10^3/uL (130-400); RED BLOOD COUNT 2.01 x10^6/uL (4.38-5.82)
[2018-12-19 09:17] LABS: BASOPHILS # (AUTO) 0.01 x10^3/uL (0-0.1); BASOPHILS % (AUTO) 0 % (0-1); EOSINOPHILS # (AUTO) 0.05 x10^3/uL (0-0.4); EOSINOPHILS % (AUTO) 1 % (1-7); LYMPHOCYTES # (AUTO) 1.02 x10^3/uL (1-3.4); LYMPHOCYTES % (AUTO) 26 % (22-44); MD SCAN; MONOCYTES # (AUTO) 0.09 x10^3/uL (0.2-0.8); MONOCYTES % (AUTO) 2 % (2-9); NEUTROPHILS # (AUTO) 2.73 x10^3/uL (1.8-6.8); NEUTROPHILS % (AUTO) 70 % (42-75)
[2018-12-19] MEDS: PANTOPRAZOLE 40 MG IV IVPush SCH ×2 (09:17→19:38)
[2018-12-19] MEDS: FUROSEMIDE 40 MG/4 ML IV SCH (09:17)
[2018-12-19] MEDS: THIAMINE 100MG TABLET PO SCH ×2 (09:17→20:36)
[2018-12-19] MEDS: CALCIUM CARBONATE 500 MG TAB.CHEW PO SCH ×2 (09:17→20:36)
[2018-12-19] MEDS: ALBUMIN HUMAN 25% 100 ML IV SCH ×3 (12:00→23:58)
[2018-12-19 12:17] LABS: BASOPHILS # (AUTO) 0.03 x10^3/uL (0-0.1); BASOPHILS % (AUTO) 1 % (0-1); EOSINOPHILS # (AUTO) 0.06 x10^3/uL (0-0.4); EOSINOPHILS % (AUTO) 1 % (1-7); LYMPHOCYTES # (AUTO) 1.54 x10^3/uL (1-3.4); LYMPHOCYTES % (AUTO) 26 % (22-44); MD SCAN; MEAN CORPUSCULAR HEMOGLOBIN 34.8 pg (27.5-34.5); MEAN CORPUSCULAR HGB CONC 34.3 g/dL (33.2-36.2); MEAN CORPUSCULAR VOLUME 101.5 fL (81-97); MEAN PLATELET VOLUME 10.7 fL (7.4-10.4); MONOCYTES # (AUTO) 0.13 x10^3/uL (0.2-0.8); MONOCYTES % (AUTO) 2 % (2-9); NEUTROPHILS % (AUTO) 70 % (42-75); PLATELET COUNT 82 x10^3/uL (130-400); RED CELL DISTRIBUTION WIDTH 16.2 % (9.4-14.8)
[2018-12-19] MEDS: METOPROLOL TARTRATE 50 MG TABLET PO SCH (17:06)
[2018-12-19 21:23] LABS: MEAN CORPUSCULAR HEMOGLOBIN 33.7 pg (27.5-34.5); MEAN CORPUSCULAR HGB CONC 33.4 g/dL (33.2-36.2); MEAN CORPUSCULAR VOLUME 100.8 fL (81-97); MEAN PLATELET VOLUME 10.5 fL (7.4-10.4); PLATELET COUNT 88 x10^3/uL (130-400); RED BLOOD COUNT 2.24 x10^6/uL (4.38-5.82); RED CELL DISTRIBUTION WIDTH 16.4 % (9.4-14.8)
[2018-12-19 22:06] LABS: BASOPHILS # (AUTO) 0.01 x10^3/uL (0-0.1); BASOPHILS % (AUTO) 0 % (0-1); EOSINOPHILS # (AUTO) 0.04 x10^3/uL (0-0.4); EOSINOPHILS % (AUTO) 1 % (1-7); LYMPHOCYTES % (AUTO) 28 % (22-44); MD SCAN; MONOCYTES # (AUTO) 0.07 x10^3/uL (0.2-0.8); MONOCYTES % (AUTO) 2 % (2-9); NEUTROPHILS # (AUTO) 2.42 x10^3/uL (1.8-6.8); NEUTROPHILS % (AUTO) 69 % (42-75)
[2018-12-20 00:43] VITALS: BP 136/70
[2018-12-20] MEDS: DOXYCYCLINE 100 MG in DEXTROSE 5% 250 ML IV SCH ×2 (04:06→16:00)
[2018-12-20] MEDS: PIPERACILLIN/TAZO/PMX 4.5GM 100 ML IV SCH ×4 (04:53→23:03)
[2018-12-20] MEDS: ALBUMIN HUMAN 25% 100 ML IV SCH ×3 (05:46→20:25)
[2018-12-20] MEDS: METOPROLOL TARTRATE 50 MG TABLET PO SCH (05:46)
[2018-12-20] MEDS: GUAIFENESIN 200 MG TABLET PO SCH ×4 (05:46→20:24)
[2018-12-20 06:38] LABS: MEAN CORPUSCULAR HEMOGLOBIN 34.4 pg (27.5-34.5); MEAN CORPUSCULAR HGB CONC 34.2 g/dL (33.2-36.2); MEAN CORPUSCULAR VOLUME 100.6 fL (81-97); MEAN PLATELET VOLUME 10.3 fL (7.4-10.4); PLATELET COUNT 85 x10^3/uL (130-400); RED BLOOD COUNT 2.07 x10^6/uL (4.38-5.82); RED CELL DISTRIBUTION WIDTH 16.2 % (9.4-14.8)
[2018-12-20 06:42] LABS: ALBUMIN 2.5 g/dL (3.4-5.0); ANION GAP 5 mmol/L (5-15); CALCIUM 7.7 mg/dL (8.5-10.1); CHLORIDE 111 mmol/L (98-107)
[2018-12-20 06:46] LABS: ALANINE AMINOTRANSFERASE 17 U/L (12-78); ALKALINE PHOSPHATASE 75 U/L (45-117); BILIRUBIN,TOTAL 1.6 mg/dL (0.2-1.0); CREATININE 0.53 mg/dL (0.7-1.3); TOTAL PROTEIN 5.5 g/dL (6.4-8.2)
[2018-12-20 06:56] LABS: BASOPHILS # (AUTO) 0.02 x10^3/uL (0-0.1); BASOPHILS % (AUTO) 1 % (0-1); EOSINOPHILS # (AUTO) 0.04 x10^3/uL (0-0.4); EOSINOPHILS % (AUTO) 1 % (1-7); LYMPHOCYTES # (AUTO) 0.82 x10^3/uL (1-3.4); LYMPHOCYTES % (AUTO) 26 % (22-44); MD SCAN; MONOCYTES # (AUTO) 0.09 x10^3/uL (0.2-0.8); MONOCYTES % (AUTO) 3 % (2-9); NEUTROPHILS # (AUTO) 2.19 x10^3/uL (1.8-6.8); NEUTROPHILS % (AUTO) 69 % (42-75)
[2018-12-20] MEDS: PANTOPRAZOLE 40 MG IV IVPush SCH ×2 (07:50→19:35)
[2018-12-20 08:03] VITALS: BP 125/63
[2018-12-20] MEDS: FOLIC ACID 1 MG TABLET PO SCH (09:00)
[2018-12-20] MEDS ORDERED: POTASSIUM CHLORIDE 20 MEQ TAB.ER.PRT PO SCH (09:00)
[2018-12-20] MEDS: FUROSEMIDE 40 MG/4 ML IV SCH (09:52)
[2018-12-20] MEDS: CALCIUM CARBONATE 500 MG TAB.CHEW PO SCH ×2 (09:53→20:24)
[2018-12-20] MEDS: THIAMINE 100MG TABLET PO SCH ×2 (09:53→20:24)
[2018-12-20 10:10] LABS: MEAN CORPUSCULAR HEMOGLOBIN 33.5 pg (27.5-34.5); MEAN CORPUSCULAR HGB CONC 33.6 g/dL (33.2-36.2); MEAN CORPUSCULAR VOLUME 99.7 fL (81-97); MEAN PLATELET VOLUME 10.1 fL (7.4-10.4); PLATELET COUNT 87 x10^3/uL (130-400); RED BLOOD COUNT 2.14 x10^6/uL (4.38-5.82); RED CELL DISTRIBUTION WIDTH 15.8 % (9.4-14.8)
[2018-12-20 10:13] LABS: HEMOGRAM NOTE RECHECKED
[2018-12-20 10:44] LABS: BASOPHILS # (AUTO) 0.01 x10^3/uL (0-0.1); BASOPHILS % (AUTO) 0 % (0-1); EOSINOPHILS # (AUTO) 0.04 x10^3/uL (0-0.4); EOSINOPHILS % (AUTO) 1 % (1-7); LYMPHOCYTES # (AUTO) 0.82 x10^3/uL (1-3.4); LYMPHOCYTES % (AUTO) 26 % (22-44); MD SCAN; MONOCYTES # (AUTO) 0.03 x10^3/uL (0.2-0.8); MONOCYTES % (AUTO) 1 % (2-9); NEUTROPHILS # (AUTO) 2.32 x10^3/uL (1.8-6.8); NEUTROPHILS % (AUTO) 72 % (42-75)
[2018-12-20 12:24] VITALS: BP 144/69
[2018-12-20] MEDS: ACETAMINOPHEN 325 MG TABLET PO PRN (12:37)
[2018-12-20] MEDS: VANCOMYCIN 1,400 MG in SODIUM CHLORIDE 0.9% 250 ML IV SCH ×2 (13:24→23:04)
[2018-12-20] MEDS: POTASSIUM CHLORIDE 20 MEQ TAB.ER.PRT PO SCH ×2 (16:09→20:24)
[2018-12-20] MEDS: METOPROLOL TARTRATE 100 MG TABLET PO SCH (18:00)
[2018-12-20 19:13] VITALS: BP 131/67
[2018-12-20 20:53] LABS: MD YES; MEAN CORPUSCULAR HEMOGLOBIN 34.4 pg (27.5-34.5); MEAN CORPUSCULAR HGB CONC 34.2 g/dL (33.2-36.2); MEAN CORPUSCULAR VOLUME 100.8 fL (81-97); MEAN PLATELET VOLUME 9.4 fL (7.4-10.4); PLATELET COUNT 86 x10^3/uL (130-400); RED BLOOD COUNT 2.41 x10^6/uL (4.38-5.82); RED CELL DISTRIBUTION WIDTH 16.1 % (9.4-14.8)
[2018-12-20 20:56] LABS: BAND#(MANUAL) 0.15 x10^3/uL; BANDS%(MANUAL) 4 % (0-7); EOS#(MANUAL) 0.04 x10^3/uL (0.0-0.4); EOS% (MANUAL) 1 % (1-7); LYMPH#(MANUAL) 1.07 x10^3/uL (1-3.4); LYMPHS% (MANUAL) 29 % (22-44); MONOS#(MANUAL) 0.07 x10^3/uL (0.3-2.7); MONOS% (MANUAL) 2 % (2-9); SEG#(MANUAL) 2.37 x10^3/uL (1.8-6.8); SEGS% (MANUAL) 64 % (42-75)
[2018-12-20 20:57] LABS: <PLATELET ESTIMATE> DECREASED; <PLT MORPHOLOGY> NORMAL PLT MORPH; <RBC MORPHOLOGY> NORMAL
[2018-12-21] VITALS (10 sets, daily range): BP systolic 103–141; BP diastolic 61–73
[2018-12-21] MEDS: ALBUMIN HUMAN 25% 100 ML IV SCH ×4 (03:16→20:39)
[2018-12-21] MEDS: DOXYCYCLINE 100 MG in DEXTROSE 5% 250 ML IV SCH ×2 (04:02→16:46)
[2018-12-21] MEDS: POTASSIUM CHLORIDE 20 MEQ TAB.ER.PRT PO SCH ×4 (05:37→20:38)
[2018-12-21] MEDS: PIPERACILLIN/TAZO/PMX 4.5GM 100 ML IV SCH ×4 (05:37→23:40)
[2018-12-21] MEDS: GUAIFENESIN 200 MG TABLET PO SCH ×4 (05:38→20:44)
[2018-12-21] MEDS: METOPROLOL TARTRATE 100 MG TABLET PO SCH ×2 (05:38→17:54)
[2018-12-21 06:46] LABS: MEAN CORPUSCULAR HEMOGLOBIN 34.8 pg (27.5-34.5); MEAN CORPUSCULAR HGB CONC 34.5 g/dL (33.2-36.2); MEAN PLATELET VOLUME 8.7 fL (7.4-10.4); PLATELET COUNT 87 x10^3/uL (130-400); RED BLOOD COUNT 1.93 x10^6/uL (4.38-5.82); RED CELL DISTRIBUTION WIDTH 16.3 % (9.4-14.8)
[2018-12-21 06:53] LABS: ALANINE AMINOTRANSFERASE 14 U/L (12-78); ALBUMIN 3.3 g/dL (3.4-5.0); ANION GAP 4 mmol/L (5-15); CHLORIDE 112 mmol/L (98-107); CREATININE 0.61 mg/dL (0.7-1.3)
[2018-12-21 06:55] LABS: ALKALINE PHOSPHATASE 59 U/L (45-117); BILIRUBIN,TOTAL 1.6 mg/dL (0.2-1.0); TOTAL PROTEIN 5.8 g/dL (6.4-8.2)
[2018-12-21 07:06] LABS: MD YES
[2018-12-21 07:18] LABS: ANISOCYTOSIS 1+; BAND#(MANUAL) 0.07 x10^3/uL; BANDS%(MANUAL) 2 % (0-7); EOS#(MANUAL) 0.03 x10^3/uL (0.0-0.4); EOS% (MANUAL) 1 % (1-7); LYMPH#(MANUAL) 1.26 x10^3/uL (1-3.4); LYMPHS% (MANUAL) 37 % (22-44); MONOS#(MANUAL) 0.03 x10^3/uL (0.3-2.7); MONOS% (MANUAL) 1 % (2-9); SEG#(MANUAL) 2.01 x10^3/uL (1.8-6.8); SEGS% (MANUAL) 59 % (42-75)
[2018-12-21 07:19] LABS: <PLATELET ESTIMATE> DECREASED; <PLT MORPHOLOGY> NORMAL PLT MORPH; POLYCHROMASIA 1+
[2018-12-21] MEDS: CALCIUM CARBONATE 500 MG TAB.CHEW PO SCH ×2 (07:50→20:40)
[2018-12-21] MEDS: PANTOPRAZOLE 40 MG IV IVPush SCH ×2 (07:51→20:38)
[2018-12-21] MEDS: THIAMINE 100MG TABLET PO SCH ×2 (07:51→20:40)
[2018-12-21] MEDS: FOLIC ACID 1 MG TABLET PO SCH (07:51)
[2018-12-21] MEDS: FUROSEMIDE 40 MG/4 ML IV SCH (07:51)
[2018-12-21] MEDS: VANCOMYCIN 1,400 MG in SODIUM CHLORIDE 0.9% 250 ML IV SCH (13:00)
[2018-12-21 16:12] LABS: CLOSTRIDIUM DIFFICILE ANTIGEN NEGATIVE; CLOSTRIDIUM DIFFICILE TOXIN NEGATIVE (Negative)
[2018-12-22] MEDS: VANCOMYCIN 1,400 MG in SODIUM CHLORIDE 0.9% 250 ML IV SCH ×2 (00:25→16:36)
[2018-12-22 01:15] VITALS: BP 115/65
[2018-12-22] MEDS: ALBUMIN HUMAN 25% 100 ML IV SCH (02:58)
[2018-12-22] MEDS: DOXYCYCLINE 100 MG in DEXTROSE 5% 250 ML IV SCH ×2 (04:29→16:37)
[2018-12-22 05:38] VITALS: BP 145/72
[2018-12-22] MEDS: PIPERACILLIN/TAZO/PMX 4.5GM 100 ML IV SCH ×3 (05:39→18:00)
[2018-12-22] MEDS: GUAIFENESIN 200 MG TABLET PO SCH ×4 (05:39→20:11)
[2018-12-22] MEDS: METOPROLOL TARTRATE 100 MG TABLET PO SCH ×2 (05:40→16:36)
[2018-12-22] MEDS: POTASSIUM CHLORIDE 20 MEQ TAB.ER.PRT PO SCH ×4 (05:40→20:40)
[2018-12-22 06:31] LABS: MEAN CORPUSCULAR HEMOGLOBIN 33.1 pg (27.5-34.5); MEAN CORPUSCULAR HGB CONC 33.3 g/dL (33.2-36.2); MEAN CORPUSCULAR VOLUME 99.4 fL (81-97); MEAN PLATELET VOLUME 10.3 fL (7.4-10.4); PLATELET COUNT 91 x10^3/uL (130-400); RED BLOOD COUNT 2.32 x10^6/uL (4.38-5.82); RED CELL DISTRIBUTION WIDTH 16.7 % (9.4-14.8)
[2018-12-22 06:36] LABS: ALANINE AMINOTRANSFERASE 14 U/L (12-78); ALBUMIN 3.6 g/dL (3.4-5.0); ANION GAP 6 mmol/L (5-15); CALCIUM 8.3 mg/dL (8.5-10.1); CHLORIDE 112 mmol/L (98-107); CREATININE 0.58 mg/dL (0.7-1.3)
[2018-12-22 06:38] LABS: ALKALINE PHOSPHATASE 55 U/L (45-117); BILIRUBIN,TOTAL 2.1 mg/dL (0.2-1.0); TOTAL PROTEIN 6.2 g/dL (6.4-8.2)
[2018-12-22 06:55] LABS: MD YES
[2018-12-22 06:56] VITALS: BP 120/71
[2018-12-22 06:56] LABS: BAND#(MANUAL) 0.04 x10^3/uL; BANDS%(MANUAL) 1 % (0-7); EOS#(MANUAL) 0.08 x10^3/uL (0.0-0.4); EOS% (MANUAL) 2 % (1-7); MONOS#(MANUAL) 0.08 x10^3/uL (0.3-2.7); MONOS% (MANUAL) 2 % (2-9); NRBC % (MANUAL) 2 % (0-1)
[2018-12-22 06:57] LABS: LYMPHS% (MANUAL) 31 % (22-44); SEG#(MANUAL) 2.69 x10^3/uL (1.8-6.8); SEGS% (MANUAL) 64 % (42-75)
[2018-12-22 06:58] LABS: <PLATELET ESTIMATE> DECREASED; ANISOCYTOSIS 1+; LARGE PLATELETS 1+; POLYCHROMASIA 1+
[2018-12-22] MEDS ORDERED: POTASSIUM PHOSPHATE 44 MEQ in SODIUM CHLORIDE 0.9% 500 ML IV ONE ×2 (07:00→15:00)
[2018-12-22] MEDS ORDERED: OMNIPAQUE 350 MG/ML, 75ML BOTTLE ONE (08:57)
[2018-12-22] MEDS: CALCIUM CARBONATE 500 MG TAB.CHEW PO SCH ×2 (09:38→20:12)
[2018-12-22] MEDS: THIAMINE 100MG TABLET PO SCH ×2 (09:38→20:12)
[2018-12-22] MEDS: FOLIC ACID 1 MG TABLET PO SCH (09:38)
[2018-12-22] MEDS: PANTOPRAZOLE 40 MG IV IVPush SCH ×2 (09:39→20:11)
[2018-12-22] MEDS: FUROSEMIDE 40 MG/4 ML IV SCH (09:39)
[2018-12-22 12:49] LABS: OCCULT BLOOD NEGATIVE (NEGATIVE)
[2018-12-22 13:53] VITALS: BP 124/75
[2018-12-22 18:40] VITALS: BP 127/70
[2018-12-22 21:19] LABS: MD MORPH REVIEW ONLY; MEAN CORPUSCULAR HEMOGLOBIN 34.4 pg (27.5-34.5); MEAN CORPUSCULAR HGB CONC 34.1 g/dL (33.2-36.2); MEAN CORPUSCULAR VOLUME 100.7 fL (81-97); RED BLOOD COUNT 2.84 x10^6/uL (4.38-5.82); RED CELL DISTRIBUTION WIDTH 17.3 % (9.4-14.8)
[2018-12-22 21:20] LABS: BASOPHILS # (AUTO) 0.01 x10^3/uL (0-0.1); BASOPHILS % (AUTO) 0 % (0-1); EOSINOPHILS % (AUTO) 2 % (1-7); LYMPHOCYTES # (AUTO) 1.21 x10^3/uL (1-3.4); LYMPHOCYTES % (AUTO) 24 % (22-44); MEAN PLATELET VOLUME 10.1 fL (7.4-10.4); MONOCYTES % (AUTO) 2 % (2-9); NEUTROPHILS # (AUTO) 3.53 x10^3/uL (1.8-6.8); NEUTROPHILS % (AUTO) 71 % (42-75); PLATELET COUNT 91 x10^3/uL (130-400)
[2018-12-22 21:21] LABS: ANISOCYTOSIS 1+; POLYCHROMASIA 1+
[2018-12-22 21:22] LABS: <PLATELET ESTIMATE> DECREASED; LARGE PLATELETS 1+
[2018-12-23 00:30] VITALS: BP 137/66
[2018-12-23] MEDS: PIPERACILLIN/TAZO/PMX 4.5GM 100 ML IV SCH ×4 (01:07→18:44)
[2018-12-23] MEDS: DOXYCYCLINE 100 MG in DEXTROSE 5% 250 ML IV SCH ×2 (04:13→15:57)
[2018-12-23 04:18] LABS: MEAN CORPUSCULAR HEMOGLOBIN 33.9 pg (27.5-34.5); MEAN CORPUSCULAR HGB CONC 34.5 g/dL (33.2-36.2); MEAN CORPUSCULAR VOLUME 98.3 fL (81-97); RED BLOOD COUNT 2.52 x10^6/uL (4.38-5.82); RED CELL DISTRIBUTION WIDTH 17.3 % (9.4-14.8)
[2018-12-23 04:30] LABS: ALANINE AMINOTRANSFERASE 16 U/L (12-78); ALBUMIN 3.2 g/dL (3.4-5.0); ANION GAP 7 mmol/L (5-15); CALCIUM 8.4 mg/dL (8.5-10.1); CHLORIDE 112 mmol/L (98-107)
[2018-12-23 04:33] LABS: ALKALINE PHOSPHATASE 67 U/L (45-117); BILIRUBIN,TOTAL 2.1 mg/dL (0.2-1.0); TOTAL PROTEIN 6.1 g/dL (6.4-8.2); VANCOMYCIN,TROUGH 12.4 mcg/mL (5.0-10.0)
[2018-12-23 05:12] LABS: BASOPHILS # (AUTO) 0.01 x10^3/uL (0-0.1); BASOPHILS % (AUTO) 0 % (0-1); EOSINOPHILS # (AUTO) 0.09 x10^3/uL (0-0.4); EOSINOPHILS % (AUTO) 2 % (1-7); LYMPHOCYTES # (AUTO) 0.82 x10^3/uL (1-3.4); LYMPHOCYTES % (AUTO) 19 % (22-44); MD SCAN; MEAN PLATELET VOLUME 9.9 fL (7.4-10.4); MONOCYTES # (AUTO) 0.11 x10^3/uL (0.2-0.8); MONOCYTES % (AUTO) 3 % (2-9); NEUTROPHILS # (AUTO) 3.26 x10^3/uL (1.8-6.8); NEUTROPHILS % (AUTO) 76 % (42-75); PLATELET COUNT 94 x10^3/uL (130-400)
[2018-12-23] MEDS: VANCOMYCIN 1,400 MG in SODIUM CHLORIDE 0.9% 250 ML IV SCH ×2 (05:19→17:08)
[2018-12-23] MEDS: POTASSIUM CHLORIDE 20 MEQ TAB.ER.PRT PO SCH ×4 (06:00→21:56)
[2018-12-23 06:08] VITALS: BP 127/65
[2018-12-23] MEDS: METOPROLOL TARTRATE 100 MG TABLET PO SCH ×2 (06:09→17:08)
[2018-12-23] MEDS: GUAIFENESIN 200 MG TABLET PO SCH ×4 (06:09→21:56)
[2018-12-23 07:29] VITALS: BP 134/69
[2018-12-23] MEDS: THIAMINE 100MG TABLET PO SCH ×2 (08:23→21:57)
[2018-12-23] MEDS: CALCIUM CARBONATE 500 MG TAB.CHEW PO SCH ×2 (08:23→21:57)
[2018-12-23] MEDS: FOLIC ACID 1 MG TABLET PO SCH (08:23)
[2018-12-23] MEDS: PANTOPROZOLE 40MG TABLET PO SCH (08:23)
[2018-12-23 12:49] VITALS: BP 127/72
[2018-12-23 19:46] VITALS: BP 120/69
[2018-12-23 21:08] LABS: MD YES; MEAN CORPUSCULAR HEMOGLOBIN 34.6 pg (27.5-34.5); MEAN CORPUSCULAR HGB CONC 34.4 g/dL (33.2-36.2); MEAN CORPUSCULAR VOLUME 100.7 fL (81-97); MEAN PLATELET VOLUME 10.1 fL (7.4-10.4); PLATELET COUNT 101 x10^3/uL (130-400); RED BLOOD COUNT 2.46 x10^6/uL (4.38-5.82)
[2018-12-23 21:32] LABS: <PLATELET ESTIMATE> DECREASED; ANISOCYTOSIS 1+; BAND#(MANUAL) 0.04 x10^3/uL; BANDS%(MANUAL) 1 % (0-7); EOS#(MANUAL) 0.09 x10^3/uL (0.0-0.4); EOS% (MANUAL) 2 % (1-7); LARGE PLATELETS 1+; LYMPH#(MANUAL) 1.03 x10^3/uL (1-3.4); LYMPHS% (MANUAL) 24 % (22-44); MONOS#(MANUAL) 0.13 x10^3/uL (0.3-2.7); MONOS% (MANUAL) 3 % (2-9); POLYCHROMASIA 1+; SEG#(MANUAL) 3.01 x10^3/uL (1.8-6.8); SEGS% (MANUAL) 70 % (42-75)
[2018-12-24] MEDS: PIPERACILLIN/TAZO/PMX 4.5GM 100 ML IV SCH ×4 (01:21→19:58)
[2018-12-24 01:34] VITALS: BP 113/65
[2018-12-24] MEDS: DOXYCYCLINE 100 MG in DEXTROSE 5% 250 ML IV SCH (04:07)
[2018-12-24] MEDS: VANCOMYCIN 1,400 MG in SODIUM CHLORIDE 0.9% 250 ML IV SCH (05:25)
[2018-12-24] MEDS: METOPROLOL TARTRATE 100 MG TABLET PO SCH ×2 (06:00→17:52)
[2018-12-24] MEDS: PANTOPROZOLE 40MG TABLET PO SCH (06:01)
[2018-12-24] MEDS: POTASSIUM CHLORIDE 20 MEQ TAB.ER.PRT PO SCH ×4 (06:01→21:20)
[2018-12-24] MEDS: GUAIFENESIN 200 MG TABLET PO SCH ×4 (06:01→21:19)
[2018-12-24 06:09] LABS: BASOPHILS # (AUTO) 0.02 x10^3/uL (0-0.1); BASOPHILS % (AUTO) 0 % (0-1); EOSINOPHILS % (AUTO) 2 % (1-7); LYMPHOCYTES # (AUTO) 0.99 x10^3/uL (1-3.4); LYMPHOCYTES % (AUTO) 23 % (22-44); MD NO; MEAN CORPUSCULAR HEMOGLOBIN 35.2 pg (27.5-34.5); MEAN CORPUSCULAR HGB CONC 34.7 g/dL (33.2-36.2); MEAN CORPUSCULAR VOLUME 101.4 fL (81-97); MEAN PLATELET VOLUME 10.1 fL (7.4-10.4); MONOCYTES # (AUTO) 0.12 x10^3/uL (0.2-0.8); MONOCYTES % (AUTO) 3 % (2-9); NEUTROPHILS # (AUTO) 3.17 x10^3/uL (1.8-6.8); NEUTROPHILS % (AUTO) 72 % (42-75); PLATELET COUNT 101 x10^3/uL (130-400); RED BLOOD COUNT 2.33 x10^6/uL (4.38-5.82); RED CELL DISTRIBUTION WIDTH 16.2 % (9.4-14.8)
[2018-12-24 06:21] LABS: ALBUMIN 2.6 g/dL (3.4-5.0); ANION GAP 4 mmol/L (5-15); CALCIUM 8.4 mg/dL (8.5-10.1); CHLORIDE 114 mmol/L (98-107)
[2018-12-24 06:25] LABS: ALANINE AMINOTRANSFERASE 19 U/L (12-78); ALKALINE PHOSPHATASE 82 U/L (45-117); BILIRUBIN,TOTAL 1.3 mg/dL (0.2-1.0); TOTAL PROTEIN 5.8 g/dL (6.4-8.2)
[2018-12-24 06:43] VITALS: BP 128/68
[2018-12-24] MEDS: CALCIUM CARBONATE 500 MG TAB.CHEW PO SCH ×2 (09:00→21:20)
[2018-12-24] MEDS: FOLIC ACID 1 MG TABLET PO SCH (09:00)
[2018-12-24] MEDS: THIAMINE 100MG TABLET PO SCH ×2 (09:00→21:20)
[2018-12-24 09:11] LABS: BASOPHILS # (AUTO) 0.05 x10^3/uL (0-0.1); BASOPHILS % (AUTO) 1 % (0-1); EOSINOPHILS # (AUTO) 0.13 x10^3/uL (0-0.4); EOSINOPHILS % (AUTO) 3 % (1-7); LYMPHOCYTES % (AUTO) 20 % (22-44); MD NO; MEAN CORPUSCULAR HEMOGLOBIN 33.7 pg (27.5-34.5); MEAN CORPUSCULAR HGB CONC 33.5 g/dL (33.2-36.2); MEAN CORPUSCULAR VOLUME 100.6 fL (81-97); MEAN PLATELET VOLUME 9.9 fL (7.4-10.4); MONOCYTES # (AUTO) 0.15 x10^3/uL (0.2-0.8); MONOCYTES % (AUTO) 3 % (2-9); NEUTROPHILS # (AUTO) 3.67 x10^3/uL (1.8-6.8); NEUTROPHILS % (AUTO) 73 % (42-75); PLATELET COUNT 111 x10^3/uL (130-400); RED BLOOD COUNT 2.58 x10^6/uL (4.38-5.82); RED CELL DISTRIBUTION WIDTH 16.4 % (9.4-14.8)
[2018-12-24 12:39] VITALS: BP 123/68
[2018-12-24 20:10] VITALS: BP 134/75
[2018-12-24 21:32] LABS: BASOPHILS # (AUTO) 0.02 x10^3/uL (0-0.1); BASOPHILS % (AUTO) 0 % (0-1); EOSINOPHILS # (AUTO) 0.14 x10^3/uL (0-0.4); EOSINOPHILS % (AUTO) 3 % (1-7); LYMPHOCYTES # (AUTO) 1.17 x10^3/uL (1-3.4); LYMPHOCYTES % (AUTO) 22 % (22-44); MD NO; MEAN CORPUSCULAR HEMOGLOBIN 35.1 pg (27.5-34.5); MEAN CORPUSCULAR HGB CONC 34.4 g/dL (33.2-36.2); MEAN CORPUSCULAR VOLUME 102.2 fL (81-97); MEAN PLATELET VOLUME 9.8 fL (7.4-10.4); MONOCYTES # (AUTO) 0.15 x10^3/uL (0.2-0.8); MONOCYTES % (AUTO) 3 % (2-9); NEUTROPHILS # (AUTO) 3.73 x10^3/uL (1.8-6.8); NEUTROPHILS % (AUTO) 72 % (42-75); PLATELET COUNT 110 x10^3/uL (130-400); RED BLOOD COUNT 2.35 x10^6/uL (4.38-5.82); RED CELL DISTRIBUTION WIDTH 16.3 % (9.4-14.8)
[2018-12-25 01:14] VITALS: BP 132/67
[2018-12-25] MEDS: PIPERACILLIN/TAZO/PMX 4.5GM 100 ML IV SCH ×4 (02:03→19:36)
[2018-12-25 06:16] VITALS: BP 115/69
[2018-12-25] MEDS: METOPROLOL TARTRATE 100 MG TABLET PO SCH ×2 (06:18→17:52)
[2018-12-25] MEDS: GUAIFENESIN 200 MG TABLET PO SCH ×4 (06:18→23:03)
[2018-12-25] MEDS: PANTOPROZOLE 40MG TABLET PO SCH (06:18)
[2018-12-25] MEDS: POTASSIUM CHLORIDE 20 MEQ TAB.ER.PRT PO SCH ×3 (06:18→23:02)
[2018-12-25 06:20] LABS: BASOPHILS # (AUTO) 0.12 x10^3/uL (0-0.1); BASOPHILS % (AUTO) 2 % (0-1); EOSINOPHILS # (AUTO) 0.14 x10^3/uL (0-0.4); EOSINOPHILS % (AUTO) 2 % (1-7); LYMPHOCYTES # (AUTO) 1.55 x10^3/uL (1-3.4); LYMPHOCYTES % (AUTO) 27 % (22-44); MD NO; MEAN CORPUSCULAR HEMOGLOBIN 35.4 pg (27.5-34.5); MEAN CORPUSCULAR HGB CONC 34.6 g/dL (33.2-36.2); MEAN CORPUSCULAR VOLUME 102.3 fL (81-97); MEAN PLATELET VOLUME 9.7 fL (7.4-10.4); MONOCYTES # (AUTO) 0.17 x10^3/uL (0.2-0.8); MONOCYTES % (AUTO) 3 % (2-9); NEUTROPHILS # (AUTO) 3.79 x10^3/uL (1.8-6.8); NEUTROPHILS % (AUTO) 66 % (42-75); PLATELET COUNT 113 x10^3/uL (130-400); RED BLOOD COUNT 2.42 x10^6/uL (4.38-5.82); RED CELL DISTRIBUTION WIDTH 16.1 % (9.4-14.8)
[2018-12-25 06:33] LABS: ALBUMIN 2.7 g/dL (3.4-5.0); ANION GAP 8 mmol/L (5-15); CALCIUM 8.6 mg/dL (8.5-10.1); CHLORIDE 115 mmol/L (98-107)
[2018-12-25 06:36] LABS: ALANINE AMINOTRANSFERASE 19 U/L (12-78); ALKALINE PHOSPHATASE 105 U/L (45-117); BILIRUBIN,TOTAL 1.5 mg/dL (0.2-1.0); CREATININE 0.49 mg/dL (0.7-1.3)
[2018-12-25] MEDS ORDERED: FUROSEMIDE 40 MG/4 ML IV ONE (07:30)
[2018-12-25 07:36] VITALS: BP 118/72
[2018-12-25] MEDS: FOLIC ACID 1 MG TABLET PO SCH (09:09)
[2018-12-25] MEDS: CALCIUM CARBONATE 500 MG TAB.CHEW PO SCH ×2 (09:09→23:03)
[2018-12-25] MEDS: THIAMINE 100MG TABLET PO SCH ×2 (09:09→23:03)
[2018-12-25 11:06] LABS: MEAN CORPUSCULAR HEMOGLOBIN 33.1 pg (27.5-34.5); MEAN CORPUSCULAR HGB CONC 32.9 g/dL (33.2-36.2); MEAN CORPUSCULAR VOLUME 100.7 fL (81-97); PLATELET COUNT 128 x10^3/uL (130-400); RED BLOOD COUNT 2.79 x10^6/uL (4.38-5.82); RED CELL DISTRIBUTION WIDTH 16.3 % (9.4-14.8)
[2018-12-25 12:39] LABS: MD YES
[2018-12-25 12:41] LABS: BAND#(MANUAL) 0.29 x10^3/uL; BANDS%(MANUAL) 5 % (0-7); EOS#(MANUAL) 0.06 x10^3/uL (0.0-0.4); EOS% (MANUAL) 1 % (1-7); LYMPH#(MANUAL) 1.04 x10^3/uL (1-3.4); LYMPHS% (MANUAL) 18 % (22-44); MONOS#(MANUAL) 0.23 x10^3/uL (0.3-2.7); MONOS% (MANUAL) 4 % (2-9); MYELOCYTES# (MANUAL) 0.06 x10^3/uL (0-0); MYELOCYTES% (MANUAL) 1 % (0-0); SEG#(MANUAL) 4.12 x10^3/uL (1.8-6.8); SEGS% (MANUAL) 71 % (42-75)
[2018-12-25 12:43] LABS: <PLATELET ESTIMATE> ADEQUATE; <PLT MORPHOLOGY> NORMAL PLT MORPH; ANISOCYTOSIS 1+; POLYCHROMASIA 1+
[2018-12-25 13:49] VITALS: BP 111/72
[2018-12-25 18:32] VITALS: BP 113/75
[2018-12-26 01:16] VITALS: BP 136/72
[2018-12-26] MEDS: PIPERACILLIN/TAZO/PMX 4.5GM 100 ML IV SCH ×4 (02:12→19:59)
[2018-12-26 06:15] VITALS: BP 121/63
[2018-12-26] MEDS: METOPROLOL TARTRATE 100 MG TABLET PO SCH ×2 (06:23→17:22)
[2018-12-26] MEDS: PANTOPROZOLE 40MG TABLET PO SCH (06:23)
[2018-12-26] MEDS: GUAIFENESIN 200 MG TABLET PO SCH ×4 (06:23→22:09)
[2018-12-26 07:43] VITALS: BP 102/60
[2018-12-26] MEDS: POTASSIUM CHLORIDE 20 MEQ TAB.ER.PRT PO SCH ×2 (09:39→22:09)
[2018-12-26] MEDS: THIAMINE 100MG TABLET PO SCH ×2 (09:39→22:09)
[2018-12-26] MEDS: FOLIC ACID 1 MG TABLET PO SCH (09:39)
[2018-12-26] MEDS: CALCIUM CARBONATE 500 MG TAB.CHEW PO SCH ×2 (09:39→22:09)
[2018-12-26 12:29] VITALS: BP 119/67
[2018-12-26 15:36] LABS: MEAN CORPUSCULAR HEMOGLOBIN 34.3 pg (27.5-34.5); MEAN CORPUSCULAR HGB CONC 34.3 g/dL (33.2-36.2); MEAN CORPUSCULAR VOLUME 100.1 fL (81-97); MEAN PLATELET VOLUME 9.5 fL (7.4-10.4); PLATELET COUNT 145 x10^3/uL (130-400); RED CELL DISTRIBUTION WIDTH 16.9 % (9.4-14.8)
[2018-12-26 15:45] LABS: ANION GAP 8 mmol/L (5-15); CALCIUM 8.7 mg/dL (8.5-10.1); CHLORIDE 109 mmol/L (98-107)
[2018-12-26 15:46] LABS: CREATININE 0.46 mg/dL (0.7-1.3)
[2018-12-26 16:01] LABS: MD YES
[2018-12-26 16:29] LABS: ANISOCYTOSIS 1+; EOS#(MANUAL) 0.18 x10^3/uL (0.0-0.4); EOS% (MANUAL) 3 % (1-7); LYMPH#(MANUAL) 1.02 x10^3/uL (1-3.4); LYMPHS% (MANUAL) 17 % (22-44); MONOS#(MANUAL) 0.12 x10^3/uL (0.3-2.7); MONOS% (MANUAL) 2 % (2-9); NRBC % (MANUAL) 1 % (0-1); SEG#(MANUAL) 4.68 x10^3/uL (1.8-6.8); SEGS% (MANUAL) 78 % (42-75)
[2018-12-26 16:30] LABS: <PLATELET ESTIMATE> ADEQUATE; <PLT MORPHOLOGY> NORMAL PLT MORPH; TOXIC GRAN 1+
[2018-12-26 21:15] VITALS: BP 115/71
[2018-12-27 00:11] VITALS: BP 113/63
[2018-12-27] MEDS: PIPERACILLIN/TAZO/PMX 4.5GM 100 ML IV SCH ×4 (02:09→22:03)
[2018-12-27 06:03] VITALS: BP 113/61
[2018-12-27] MEDS: METOPROLOL TARTRATE 100 MG TABLET PO SCH ×2 (06:15→18:29)
[2018-12-27] MEDS: GUAIFENESIN 200 MG TABLET PO SCH ×4 (06:15→22:16)
[2018-12-27] MEDS: PANTOPROZOLE 40MG TABLET PO SCH (06:15)
[2018-12-27 07:06] LABS: MEAN CORPUSCULAR HEMOGLOBIN 33.9 pg (27.5-34.5); MEAN CORPUSCULAR HGB CONC 33.8 g/dL (33.2-36.2); MEAN CORPUSCULAR VOLUME 100.2 fL (81-97); MEAN PLATELET VOLUME 9.2 fL (7.4-10.4); PLATELET COUNT 155 x10^3/uL (130-400); RED BLOOD COUNT 2.67 x10^6/uL (4.38-5.82); RED CELL DISTRIBUTION WIDTH 16.5 % (9.4-14.8)
[2018-12-27 07:18] LABS: ALANINE AMINOTRANSFERASE 23 U/L (12-78); ALBUMIN 2.8 g/dL (3.4-5.0); ANION GAP 5 mmol/L (5-15); CALCIUM 8.7 mg/dL (8.5-10.1); CHLORIDE 111 mmol/L (98-107)
[2018-12-27 07:20] LABS: ALKALINE PHOSPHATASE 94 U/L (45-117); TOTAL PROTEIN 6.6 g/dL (6.4-8.2)
[2018-12-27 07:46] VITALS: BP 108/64
[2018-12-27 08:25] LABS: BASOPHILS % (AUTO) 2 % (0-1); EOSINOPHILS # (AUTO) 0.18 x10^3/uL (0-0.4); EOSINOPHILS % (AUTO) 4 % (1-7); LYMPHOCYTES # (AUTO) 1.15 x10^3/uL (1-3.4); LYMPHOCYTES % (AUTO) 22 % (22-44); MD SCAN; MONOCYTES # (AUTO) 0.16 x10^3/uL (0.2-0.8); MONOCYTES % (AUTO) 3 % (2-9); NEUTROPHILS # (AUTO) 3.74 x10^3/uL (1.8-6.8); NEUTROPHILS % (AUTO) 70 % (42-75)
[2018-12-27] MEDS: FOLIC ACID 1 MG TABLET PO SCH (08:50)
[2018-12-27] MEDS: CALCIUM CARBONATE 500 MG TAB.CHEW PO SCH (08:50)
[2018-12-27] MEDS: POTASSIUM CHLORIDE 20 MEQ TAB.ER.PRT PO SCH (08:50)
[2018-12-27] MEDS: THIAMINE 100MG TABLET PO SCH ×2 (08:50→22:16)
[2018-12-27 13:43] VITALS: BP 129/70
--- NOTE | 2018-12-27 17:03 | NUR ---
REC: Ground diet with NTL with strict aspiration precautions; orange sheet updated in room with swallowing precautions Addendum: 12/27/18 at 1704 by Ramila YOUNGBLOOD Amended: Links added.
[2018-12-27 19:50] VITALS: BP 126/73
[2018-12-27 23:44] LABS: CLOSTRIDIUM DIFFICILE ANTIGEN NEGATIVE; CLOSTRIDIUM DIFFICILE TOXIN NEGATIVE (Negative)
[2018-12-28 02:21] VITALS: BP 116/64
[2018-12-28] MEDS: PIPERACILLIN/TAZO/PMX 4.5GM 100 ML IV SCH ×3 (04:13→18:39)
[2018-12-28 06:08] VITALS: BP 115/70
[2018-12-28] MEDS: GUAIFENESIN 200 MG TABLET PO SCH ×4 (06:42→20:13)
[2018-12-28] MEDS: PANTOPROZOLE 40MG TABLET PO SCH (06:42)
[2018-12-28] MEDS: METOPROLOL TARTRATE 100 MG TABLET PO SCH ×2 (06:42→18:00)
[2018-12-28 08:10] VITALS: BP 110/68
[2018-12-28] MEDS: POTASSIUM CHLORIDE 20 MEQ TAB.ER.PRT PO SCH (11:02)
[2018-12-28] MEDS: THIAMINE 100MG TABLET PO SCH ×2 (11:02→20:12)
[2018-12-28] MEDS: FOLIC ACID 1 MG TABLET PO SCH (11:02)
[2018-12-28 13:33] VITALS: BP 123/72
[2018-12-28 18:30] VITALS: BP 109/49
[2018-12-28 19:25] VITALS: BP 97/58
[2018-12-29] MEDS: PIPERACILLIN/TAZO/PMX 4.5GM 100 ML IV SCH ×4 (00:56→21:16)
[2018-12-29 01:35] VITALS: BP 123/69
[2018-12-29] MEDS: PANTOPROZOLE 40MG TABLET PO SCH (05:22)
[2018-12-29] MEDS: METOPROLOL TARTRATE 100 MG TABLET PO SCH ×2 (05:22→18:27)
[2018-12-29] MEDS: GUAIFENESIN 200 MG TABLET PO SCH ×4 (05:22→21:16)
[2018-12-29 06:46] LABS: ALBUMIN 2.7 g/dL (3.4-5.0); ANION GAP 7 mmol/L (5-15); CALCIUM 8.6 mg/dL (8.5-10.1); CHLORIDE 106 mmol/L (98-107)
[2018-12-29 06:51] LABS: ALANINE AMINOTRANSFERASE 25 U/L (12-78); ALKALINE PHOSPHATASE 114 U/L (45-117); BILIRUBIN,TOTAL 0.8 mg/dL (0.2-1.0); CREATININE 0.52 mg/dL (0.7-1.3); TOTAL PROTEIN 6.7 g/dL (6.4-8.2)
[2018-12-29 07:12] LABS: MEAN CORPUSCULAR HEMOGLOBIN 33.8 pg (27.5-34.5); MEAN CORPUSCULAR HGB CONC 33.3 g/dL (33.2-36.2); MEAN CORPUSCULAR VOLUME 101.5 fL (81-97); MEAN PLATELET VOLUME 8.8 fL (7.4-10.4); PLATELET COUNT 179 x10^3/uL (130-400); RED BLOOD COUNT 2.61 x10^6/uL (4.38-5.82); RED CELL DISTRIBUTION WIDTH 17.7 % (9.4-14.8)
[2018-12-29 07:49] VITALS: BP 99/55
[2018-12-29 08:12] LABS: MD YES
[2018-12-29 08:14] LABS: ANISOCYTOSIS 1+; BAND#(MANUAL) 0.19 x10^3/uL; BANDS%(MANUAL) 3 % (0-7); BASOS#(MANUAL) 0.06 x10^3/uL (0-0.1); BASOS% (MANUAL) 1 % (0-1); EOS#(MANUAL) 0.19 x10^3/uL (0.0-0.4); EOS% (MANUAL) 3 % (1-7); LYMPH#(MANUAL) 0.64 x10^3/uL (1-3.4); LYMPHS% (MANUAL) 10 % (22-44); MONOS#(MANUAL) 0.77 x10^3/uL (0.3-2.7); MONOS% (MANUAL) 12 % (2-9); NRBC % (MANUAL) 1 % (0-1); POLYCHROMASIA 1+; SEG#(MANUAL) 4.54 x10^3/uL (1.8-6.8); SEGS% (MANUAL) 71 % (42-75)
[2018-12-29 08:16] LABS: TARGET CELLS 1+
[2018-12-29 08:17] LABS: <PLATELET ESTIMATE> ADEQUATE; <PLT MORPHOLOGY> NORMAL PLT MORPH; OVALOCYTES 1+
[2018-12-29] MEDS: THIAMINE 100MG TABLET PO SCH ×2 (08:55→21:16)
[2018-12-29] MEDS: POTASSIUM CHLORIDE 20 MEQ TAB.ER.PRT PO SCH (08:55)
[2018-12-29] MEDS: FOLIC ACID 1 MG TABLET PO SCH (08:55)
[2018-12-29 14:50] VITALS: BP 116/70
[2018-12-29 19:25] VITALS: BP 120/68
[2018-12-30 02:15] VITALS: BP 119/56
[2018-12-30] MEDS: PIPERACILLIN/TAZO/PMX 4.5GM 100 ML IV SCH ×4 (03:24→21:09)
[2018-12-30 06:05] LABS: MEAN CORPUSCULAR HEMOGLOBIN 35.1 pg (27.5-34.5); MEAN CORPUSCULAR HGB CONC 34.4 g/dL (33.2-36.2); MEAN CORPUSCULAR VOLUME 101.9 fL (81-97); MEAN PLATELET VOLUME 9.2 fL (7.4-10.4); PLATELET COUNT 181 x10^3/uL (130-400); RED BLOOD COUNT 2.47 x10^6/uL (4.38-5.82); RED CELL DISTRIBUTION WIDTH 18.5 % (9.4-14.8)
[2018-12-30 06:10] LABS: ANION GAP 5 mmol/L (5-15); CALCIUM 8.4 mg/dL (8.5-10.1); CHLORIDE 107 mmol/L (98-107)
[2018-12-30 06:12] VITALS: BP 116/61
[2018-12-30 06:13] LABS: CREATININE 0.48 mg/dL (0.7-1.3)
[2018-12-30] MEDS: METOPROLOL TARTRATE 100 MG TABLET PO SCH ×2 (06:13→17:31)
[2018-12-30] MEDS: GUAIFENESIN 200 MG TABLET PO SCH ×4 (06:13→20:10)
[2018-12-30] MEDS: PANTOPROZOLE 40MG TABLET PO SCH (06:13)
[2018-12-30 07:04] LABS: BASOPHILS # (AUTO) 0.03 x10^3/uL (0-0.1); BASOPHILS % (AUTO) 0 % (0-1); EOSINOPHILS # (AUTO) 0.22 x10^3/uL (0-0.4); EOSINOPHILS % (AUTO) 3 % (1-7); LYMPHOCYTES # (AUTO) 1.22 x10^3/uL (1-3.4); LYMPHOCYTES % (AUTO) 17 % (22-44); MD SCAN; MONOCYTES % (AUTO) 1 % (2-9); NEUTROPHILS # (AUTO) 5.68 x10^3/uL (1.8-6.8); NEUTROPHILS % (AUTO) 78 % (42-75)
[2018-12-30 07:50] VITALS: BP 115/59
[2018-12-30] MEDS: FOLIC ACID 1 MG TABLET PO SCH (08:10)
[2018-12-30] MEDS: POTASSIUM CHLORIDE 20 MEQ TAB.ER.PRT PO SCH (08:11)
[2018-12-30] MEDS: THIAMINE 100MG TABLET PO SCH ×2 (08:11→20:10)
[2018-12-30 12:08] VITALS: BP 129/76
[2018-12-30 18:52] VITALS: BP 118/69
[2018-12-31 00:20] VITALS: BP 121/66
[2018-12-31] MEDS: ACETAMINOPHEN 325 MG TABLET PO PRN ×3 (01:04→16:13)
[2018-12-31] MEDS: PIPERACILLIN/TAZO/PMX 4.5GM 100 ML IV SCH ×4 (03:35→20:49)
[2018-12-31] MEDS: PANTOPROZOLE 40MG TABLET PO SCH (05:32)
[2018-12-31] MEDS: METOPROLOL TARTRATE 100 MG TABLET PO SCH ×2 (05:32→17:56)
[2018-12-31] MEDS: GUAIFENESIN 200 MG TABLET PO SCH ×4 (05:33→20:49)
[2018-12-31 06:51] VITALS: BP 119/68
[2018-12-31] MEDS: POTASSIUM CHLORIDE 20 MEQ TAB.ER.PRT PO SCH (08:49)
[2018-12-31] MEDS: FOLIC ACID 1 MG TABLET PO SCH (08:49)
[2018-12-31] MEDS: THIAMINE 100MG TABLET PO SCH ×2 (08:49→20:49)
[2018-12-31 13:04] VITALS: BP 122/69
[2018-12-31 20:06] VITALS: BP 138/72
[2019-01-01 01:22] VITALS: BP 131/67
[2019-01-01] MEDS: PIPERACILLIN/TAZO/PMX 4.5GM 100 ML IV SCH ×4 (02:43→21:29)
[2019-01-01 05:49] VITALS: BP 115/64
[2019-01-01] MEDS: METOPROLOL TARTRATE 100 MG TABLET PO SCH ×2 (05:50→17:33)
[2019-01-01] MEDS: GUAIFENESIN 200 MG TABLET PO SCH ×4 (05:50→21:30)
[2019-01-01] MEDS: PANTOPROZOLE 40MG TABLET PO SCH (05:50)
[2019-01-01 06:53] VITALS: BP 113/68
[2019-01-01] MEDS: THIAMINE 100MG TABLET PO SCH ×2 (08:12→21:31)
[2019-01-01] MEDS: POTASSIUM CHLORIDE 20 MEQ TAB.ER.PRT PO SCH (08:12)
[2019-01-01] MEDS: FOLIC ACID 1 MG TABLET PO SCH (08:12)
[2019-01-01] MEDS: ACETAMINOPHEN 325 MG TABLET PO PRN ×2 (12:47→21:31)
[2019-01-01 13:45] VITALS: BP 112/68
[2019-01-01 18:56] VITALS: BP 114/66
[2019-01-02 01:11] VITALS: BP 109/65
[2019-01-02] MEDS: PIPERACILLIN/TAZO/PMX 4.5GM 100 ML IV SCH ×4 (03:25→21:47)
[2019-01-02 05:31] VITALS: BP 114/66
[2019-01-02] MEDS: GUAIFENESIN 200 MG TABLET PO SCH ×4 (05:37→22:01)
[2019-01-02] MEDS: METOPROLOL TARTRATE 100 MG TABLET PO SCH ×2 (05:37→18:08)
[2019-01-02] MEDS: PANTOPROZOLE 40MG TABLET PO SCH (05:37)
[2019-01-02 05:43] LABS: BASOPHILS # (AUTO) 0.02 x10^3/uL (0-0.1); BASOPHILS % (AUTO) 0 % (0-1); EOSINOPHILS # (AUTO) 0.23 x10^3/uL (0-0.4); EOSINOPHILS % (AUTO) 3 % (1-7); LYMPHOCYTES # (AUTO) 1.22 x10^3/uL (1-3.4); LYMPHOCYTES % (AUTO) 17 % (22-44); MD NO; MEAN CORPUSCULAR HEMOGLOBIN 34.7 pg (27.5-34.5); MEAN CORPUSCULAR HGB CONC 33.9 g/dL (33.2-36.2); MEAN CORPUSCULAR VOLUME 102.2 fL (81-97); MEAN PLATELET VOLUME 9.6 fL (7.4-10.4); MONOCYTES # (AUTO) 0.41 x10^3/uL (0.2-0.8); MONOCYTES % (AUTO) 6 % (2-9); NEUTROPHILS # (AUTO) 5.47 x10^3/uL (1.8-6.8); NEUTROPHILS % (AUTO) 75 % (42-75); PLATELET COUNT 145 x10^3/uL (130-400); RED BLOOD COUNT 2.86 x10^6/uL (4.38-5.82); RED CELL DISTRIBUTION WIDTH 18.9 % (9.4-14.8)
[2019-01-02 05:53] LABS: ALBUMIN 2.9 g/dL (3.4-5.0); ANION GAP 6 mmol/L (5-15); CALCIUM 8.7 mg/dL (8.5-10.1); CHLORIDE 104 mmol/L (98-107)
[2019-01-02 05:56] LABS: CREATININE 0.68 mg/dL (0.7-1.3)
[2019-01-02 08:08] VITALS: BP 117/65
[2019-01-02] MEDS: POTASSIUM CHLORIDE 20 MEQ TAB.ER.PRT PO SCH (08:40)
[2019-01-02] MEDS: FOLIC ACID 1 MG TABLET PO SCH (08:40)
[2019-01-02] MEDS: THIAMINE 100MG TABLET PO SCH ×2 (08:40→22:01)
[2019-01-02 14:00] VITALS: BP 135/72
[2019-01-02 19:42] VITALS: BP 115/67
[2019-01-02] MEDS: ACETAMINOPHEN 325 MG TABLET PO PRN (22:02)
[2019-01-03 00:31] VITALS: BP 112/63
[2019-01-03 02:01] LABS: MICROSCOPIC NOT IND
[2019-01-03] MEDS: PIPERACILLIN/TAZO/PMX 4.5GM 100 ML IV SCH ×4 (03:37→21:00)
[2019-01-03 04:49] VITALS: BP 125/67
[2019-01-03] MEDS: GUAIFENESIN 200 MG TABLET PO SCH ×4 (05:25→20:59)
[2019-01-03] MEDS: PANTOPROZOLE 40MG TABLET PO SCH (05:25)
[2019-01-03] MEDS: METOPROLOL TARTRATE 100 MG TABLET PO SCH ×2 (05:25→18:00)
[2019-01-03 05:37] LABS: HCT (SEDRATE) 30.6 % (39.2-51.8)
[2019-01-03 05:52] LABS: CHLORIDE 103 mmol/L (98-107)
[2019-01-03 06:11] LABS: ALANINE AMINOTRANSFERASE 44 U/L (12-78); ALKALINE PHOSPHATASE 115 U/L (45-117); ANION GAP 7 mmol/L (5-15); BILIRUBIN,TOTAL 0.5 mg/dL (0.2-1.0); CALCIUM 9.4 mg/dL (8.5-10.1); TOTAL PROTEIN 7.4 g/dL (6.4-8.2)
[2019-01-03 08:00] VITALS: BP 97/60
[2019-01-03] MEDS: POTASSIUM CHLORIDE 20 MEQ TAB.ER.PRT PO SCH (08:29)
[2019-01-03] MEDS: FOLIC ACID 1 MG TABLET PO SCH (08:29)
[2019-01-03] MEDS: THIAMINE 100MG TABLET PO SCH ×2 (08:29→21:00)
[2019-01-03 13:06] VITALS: BP 108/64
[2019-01-03] MEDS ORDERED: OMNIPAQUE 350 MG/ML, 75ML BOTTLE ONE (13:55)
[2019-01-03 19:33] VITALS: BP 118/70
[2019-01-03] MEDS: ACETAMINOPHEN 325 MG TABLET PO PRN (22:18)
[2019-01-04 00:10] VITALS: BP 111/59
[2019-01-04] MEDS: PIPERACILLIN/TAZO/PMX 4.5GM 100 ML IV SCH ×4 (02:54→20:24)
[2019-01-04 05:12] VITALS: BP 119/68
[2019-01-04] MEDS: GUAIFENESIN 200 MG TABLET PO SCH ×4 (05:13→20:24)
[2019-01-04] MEDS: PANTOPROZOLE 40MG TABLET PO SCH (05:13)
[2019-01-04] MEDS: METOPROLOL TARTRATE 100 MG TABLET PO SCH ×2 (05:13→17:01)
[2019-01-04 06:28] VITALS: BP 106/63
[2019-01-04] MEDS: THIAMINE 100MG TABLET PO SCH ×2 (09:31→20:24)
[2019-01-04] MEDS: FOLIC ACID 1 MG TABLET PO SCH (09:31)
[2019-01-04] MEDS: POTASSIUM CHLORIDE 20 MEQ TAB.ER.PRT PO SCH (09:31)
[2019-01-04 13:15] VITALS: BP 111/65
--- NOTE | 2019-01-04 16:15 | NUR ---
REC CHOPPED/NTL; swallow precautions sheet posted at bedside Addendum: 01/04/19 at [address] Amended: Links added.
[2019-01-04 19:28] VITALS: BP 116/68
[2019-01-05 02:17] VITALS: BP 130/73
[2019-01-05] MEDS: PIPERACILLIN/TAZO/PMX 4.5GM 100 ML IV SCH ×4 (03:34→22:24)
[2019-01-05] MEDS: PANTOPROZOLE 40MG TABLET PO SCH (05:55)
[2019-01-05] MEDS: METOPROLOL TARTRATE 100 MG TABLET PO SCH ×2 (05:55→16:24)
[2019-01-05] MEDS: GUAIFENESIN 200 MG TABLET PO SCH ×4 (05:55→20:28)
[2019-01-05 06:36] VITALS: BP 107/59
[2019-01-05] MEDS: POTASSIUM CHLORIDE 20 MEQ TAB.ER.PRT PO SCH (10:05)
[2019-01-05] MEDS: THIAMINE 100MG TABLET PO SCH ×2 (10:05→20:28)
[2019-01-05] MEDS: FOLIC ACID 1 MG TABLET PO SCH (10:05)
[2019-01-05 15:05] VITALS: BP 109/68
[2019-01-05 16:22] VITALS: BP 107/66
[2019-01-05 20:00] VITALS: BP 119/67
[2019-01-05] MEDS: ACETAMINOPHEN 325 MG TABLET PO PRN (20:31)
[2019-01-06 01:27] VITALS: BP 112/58
[2019-01-06] MEDS: PIPERACILLIN/TAZO/PMX 4.5GM 100 ML IV SCH ×3 (03:39→16:24)
[2019-01-06] MEDS: GUAIFENESIN 200 MG TABLET PO SCH ×4 (05:29→20:52)
[2019-01-06] MEDS: METOPROLOL TARTRATE 100 MG TABLET PO SCH ×2 (05:29→16:24)
[2019-01-06] MEDS: PANTOPROZOLE 40MG TABLET PO SCH (05:29)
[2019-01-06 07:38] VITALS: BP 109/64
[2019-01-06] MEDS: FOLIC ACID 1 MG TABLET PO SCH (09:23)
[2019-01-06] MEDS: POTASSIUM CHLORIDE 20 MEQ TAB.ER.PRT PO SCH (09:24)
[2019-01-06] MEDS: THIAMINE 100MG TABLET PO SCH ×2 (09:24→20:52)
[2019-01-06 14:24] VITALS: BP 112/60
[2019-01-06 19:28] VITALS: BP 110/54
[2019-01-06] MEDS: metroNIDAZOLE 500 MG TABLET PO SCH (20:52)
[2019-01-06] MEDS: CEFTRIAXONE PMX 2GM/50ML 50 ML IV SCH (20:53)
[2019-01-07 01:01] VITALS: BP 117/64
[2019-01-07] MEDS: ACETAMINOPHEN 325 MG TABLET PO PRN (05:17)
[2019-01-07] MEDS: METOPROLOL TARTRATE 100 MG TABLET PO SCH ×2 (05:18→17:14)
[2019-01-07] MEDS: metroNIDAZOLE 500 MG TABLET PO SCH ×3 (05:18→20:54)
[2019-01-07] MEDS: GUAIFENESIN 200 MG TABLET PO SCH ×4 (05:19→20:55)
[2019-01-07] MEDS: PANTOPROZOLE 40MG TABLET PO SCH (05:19)
[2019-01-07 05:33] LABS: BASOPHILS # (AUTO) 0.07 x10^3/uL (0-0.1); BASOPHILS % (AUTO) 1 % (0-1); EOSINOPHILS % (AUTO) 4 % (1-7); LYMPHOCYTES % (AUTO) 22 % (22-44); MD NO; MEAN CORPUSCULAR HEMOGLOBIN 32.7 pg (27.5-34.5); MEAN CORPUSCULAR HGB CONC 32.4 g/dL (33.2-36.2); MEAN CORPUSCULAR VOLUME 100.8 fL (81-97); MEAN PLATELET VOLUME 8.1 fL (7.4-10.4); MONOCYTES # (AUTO) 0.65 x10^3/uL (0.2-0.8); MONOCYTES % (AUTO) 8 % (2-9); NEUTROPHILS # (AUTO) 5.65 x10^3/uL (1.8-6.8); NEUTROPHILS % (AUTO) 66 % (42-75); PLATELET COUNT 289 x10^3/uL (130-400); RED BLOOD COUNT 3.45 x10^6/uL (4.38-5.82); RED CELL DISTRIBUTION WIDTH 18.2 % (9.4-14.8)
[2019-01-07 05:42] LABS: ALANINE AMINOTRANSFERASE 38 U/L (12-78); ALBUMIN 2.9 g/dL (3.4-5.0); ANION GAP 8 mmol/L (5-15); CALCIUM 9.1 mg/dL (8.5-10.1); CHLORIDE 104 mmol/L (98-107); CREATININE 0.55 mg/dL (0.7-1.3)
[2019-01-07 05:44] LABS: ALKALINE PHOSPHATASE 107 U/L (45-117); BILIRUBIN,TOTAL 0.3 mg/dL (0.2-1.0); TOTAL PROTEIN 7.3 g/dL (6.4-8.2)
[2019-01-07 08:20] VITALS: BP 94/56
[2019-01-07] MEDS: POTASSIUM CHLORIDE 20 MEQ TAB.ER.PRT PO SCH (08:24)
[2019-01-07] MEDS: FOLIC ACID 1 MG TABLET PO SCH (08:24)
[2019-01-07] MEDS: THIAMINE 100MG TABLET PO SCH ×2 (08:24→20:55)
[2019-01-07 14:58] VITALS: BP 94/55
[2019-01-07 19:35] VITALS: BP 99/58
[2019-01-07] MEDS: CEFTRIAXONE PMX 2GM/50ML 50 ML IV SCH (20:55)
[2019-01-08 00:25] VITALS: BP 99/59
[2019-01-08] MEDS: metroNIDAZOLE 500 MG TABLET PO SCH ×3 (05:36→21:39)
[2019-01-08] MEDS: GUAIFENESIN 200 MG TABLET PO SCH ×4 (05:36→21:39)
[2019-01-08] MEDS: METOPROLOL TARTRATE 100 MG TABLET PO SCH ×2 (05:36→18:03)
[2019-01-08] MEDS: PANTOPROZOLE 40MG TABLET PO SCH (05:36)
[2019-01-08 06:44] VITALS: BP 108/63
[2019-01-08] MEDS: THIAMINE 100MG TABLET PO SCH ×2 (09:08→21:39)
[2019-01-08] MEDS: FOLIC ACID 1 MG TABLET PO SCH (09:08)
[2019-01-08] MEDS: ACETAMINOPHEN 325 MG TABLET PO PRN (09:08)
[2019-01-08] MEDS: POTASSIUM CHLORIDE 20 MEQ TAB.ER.PRT PO SCH (09:08)
[2019-01-08 14:50] VITALS: BP 114/68
[2019-01-08 19:34] VITALS: BP 106/67
[2019-01-08] MEDS: CEFTRIAXONE PMX 2GM/50ML 50 ML IV SCH (21:39)
[2019-01-09 01:20] VITALS: BP 102/61
[2019-01-09 05:05] LABS: HCT (SEDRATE) 34.3 % (39.2-51.8)
[2019-01-09] MEDS: GUAIFENESIN 200 MG TABLET PO SCH ×4 (05:21→20:29)
[2019-01-09] MEDS: metroNIDAZOLE 500 MG TABLET PO SCH (05:21)
[2019-01-09] MEDS: METOPROLOL TARTRATE 100 MG TABLET PO SCH ×2 (05:22→17:17)
[2019-01-09] MEDS: PANTOPROZOLE 40MG TABLET PO SCH (05:22)
[2019-01-09 07:39] VITALS: BP 113/67
[2019-01-09] MEDS: FOLIC ACID 1 MG TABLET PO SCH (08:44)
[2019-01-09] MEDS: POTASSIUM CHLORIDE 20 MEQ TAB.ER.PRT PO SCH (08:44)
[2019-01-09] MEDS: THIAMINE 100MG TABLET PO SCH ×2 (08:44→20:28)
[2019-01-09 12:34] VITALS: BP 100/65
[2019-01-09] MEDS: AMOXICILLIN/CLAV 875-125MG TABLET PO SCH ×2 (13:09→20:28)
[2019-01-09] MEDS: ACETAMINOPHEN 325 MG TABLET PO PRN (13:56)
[2019-01-09 17:19] VITALS: BP 114/69
[2019-01-09 18:40] VITALS: BP 105/65
[2019-01-10 00:55] VITALS: BP 119/71
[2019-01-10] MEDS: PANTOPROZOLE 40MG TABLET PO SCH (06:14)
[2019-01-10] MEDS: METOPROLOL TARTRATE 100 MG TABLET PO SCH ×2 (06:14→17:34)
[2019-01-10] MEDS: GUAIFENESIN 200 MG TABLET PO SCH ×4 (06:15→21:21)
[2019-01-10 06:37] VITALS: BP 111/68
[2019-01-10 07:55] LABS: BASOPHILS # (AUTO) 0.15 x10^3/uL (0-0.1); BASOPHILS % (AUTO) 2 % (0-1); EOSINOPHILS % (AUTO) 4 % (1-7); LYMPHOCYTES # (AUTO) 2.23 x10^3/uL (1-3.4); LYMPHOCYTES % (AUTO) 23 % (22-44); MD NO; MEAN CORPUSCULAR HEMOGLOBIN 32.5 pg (27.5-34.5); MEAN CORPUSCULAR HGB CONC 32.3 g/dL (33.2-36.2); MEAN CORPUSCULAR VOLUME 100.7 fL (81-97); MEAN PLATELET VOLUME 7.7 fL (7.4-10.4); MONOCYTES # (AUTO) 1.13 x10^3/uL (0.2-0.8); MONOCYTES % (AUTO) 11 % (2-9); NEUTROPHILS # (AUTO) 5.98 x10^3/uL (1.8-6.8); NEUTROPHILS % (AUTO) 60 % (42-75); PLATELET COUNT 368 x10^3/uL (130-400); RED BLOOD COUNT 3.19 x10^6/uL (4.38-5.82); RED CELL DISTRIBUTION WIDTH 17.7 % (9.4-14.8)
[2019-01-10 08:16] LABS: ALBUMIN 2.8 g/dL (3.4-5.0); ANION GAP 8 mmol/L (5-15); CALCIUM 8.9 mg/dL (8.5-10.1); CHLORIDE 105 mmol/L (98-107); CREATININE 0.62 mg/dL (0.7-1.3)
[2019-01-10] MEDS: POTASSIUM CHLORIDE 20 MEQ TAB.ER.PRT PO SCH (09:40)
[2019-01-10] MEDS: FOLIC ACID 1 MG TABLET PO SCH (09:40)
[2019-01-10] MEDS: AMOXICILLIN/CLAV 875-125MG TABLET PO SCH ×2 (09:40→21:21)
[2019-01-10] MEDS: THIAMINE 100MG TABLET PO SCH ×2 (09:40→21:21)
[2019-01-10] MEDS ORDERED: METO-99 PO (11:50)
[2019-01-10] MEDS ORDERED: POTA20TA6 PO (11:50)
[2019-01-10] MEDS ORDERED: GUAI200T3 PO (11:50)
[2019-01-10] MEDS ORDERED: THIA100T67 PO (11:50)
[2019-01-10] MEDS ORDERED: AMOX1TAB12 PO (11:50)
[2019-01-10] MEDS ORDERED: PANT40TA5 PO (11:50)
[2019-01-10] MEDS ORDERED: FOLI-17 PO (11:50)
[2019-01-10 12:41] VITALS: BP 118/71
[2019-01-10 17:38] VITALS: BP 123/72
[2019-01-10 18:35] VITALS: BP 114/66
[2019-01-11 00:10] VITALS: BP 107/64
[2019-01-11 05:42] VITALS: BP 111/67
[2019-01-11] MEDS: PANTOPROZOLE 40MG TABLET PO SCH (05:47)
[2019-01-11] MEDS: METOPROLOL TARTRATE 100 MG TABLET PO SCH (05:47)
[2019-01-11] MEDS: GUAIFENESIN 200 MG TABLET PO SCH ×2 (05:47→09:46)
[2019-01-11 08:00] VITALS: BP 105/63
[2019-01-11] MEDS: FOLIC ACID 1 MG TABLET PO SCH (09:39)
[2019-01-11] MEDS: AMOXICILLIN/CLAV 875-125MG TABLET PO SCH (09:39)
[2019-01-11] MEDS: THIAMINE 100MG TABLET PO SCH (09:39)
[2019-01-11] MEDS: POTASSIUM CHLORIDE 20 MEQ TAB.ER.PRT PO SCH (09:40)
[2019-01-11 13:16] VITALS: BP 100/65
== END 2019-01-11 15:40 | disposition home or self-care (01) | DRG 871 ==
LOC: ED 15:04 → 5SO 20:18 → 4WST 12-08 17:05 → 4EST 12-09 20:40 → DCLOUNGE 01-11 15:35
PROVIDERS: ADMIT Hospitalist; ATTEND Hospitalist
PROC: 0W3P8ZZ Control Bleeding in Gastrointestinal Tract, Via Natural or Artificial Opening Endoscopic (ICD-10-PCS; principal; 2018-12-10 14:00)
PROC: 30233N1 Transfusion of Nonautologous Red Blood Cells into Peripheral Vein, Percutaneous Approach (ICD-10-PCS; 2018-12-19)
DX: A41.9 Sepsis, unspecified organism (principal); J15.9 Unspecified bacterial pneumonia; J96.01 Acute respiratory failure with hypoxia; K26.4 Chronic or unspecified duodenal ulcer with hemorrhage; E43 Unspecified severe protein-calorie malnutrition; G93.41 Metabolic encephalopathy; J86.9 Pyothorax without fistula; K85.20 Alcohol induced acute pancreatitis without necrosis or infection; N17.0 Acute kidney failure with tubular necrosis; R65.21 Severe sepsis with septic shock; I85.00 Esophageal varices without bleeding; D62 Acute posthemorrhagic anemia; E87.0 Hyperosmolality and hypernatremia; J91.8 Pleural effusion in other conditions classified elsewhere; C34.90 Malignant neoplasm of unspecified part of unspecified bronchus or lung; E87.1 Hypo-osmolality and hyponatremia; F10.231 Alcohol dependence with withdrawal delirium; I31.3 Pericardial effusion (noninflammatory); I82.621 Acute embolism and thrombosis of deep veins of right upper extremity; J81.1 Chronic pulmonary edema; R04.2 Hemoptysis; Z68.1 Body mass index [BMI] 19.9 or less, adult; R53.81 Other malaise; E83.39 Other disorders of phosphorus metabolism; E83.51 Hypocalcemia; F17.210 Nicotine dependence, cigarettes, uncomplicated; E87.6 Hypokalemia; D75.89 Other specified diseases of blood and blood-forming organs; D69.59 Other secondary thrombocytopenia; I80.8 Phlebitis and thrombophlebitis of other sites; K74.60 Unspecified cirrhosis of liver; K81.9 Cholecystitis, unspecified; K21.9 Gastro-esophageal reflux disease without esophagitis; R29.6 Repeated falls; R56.9 Unspecified convulsions; W18.39XA Other fall on same level, initial encounter; Y93.89 Activity, other specified; Y92.030 Kitchen in apartment as the place of occurrence of the external cause; Y99.8 Other external cause status; Z74.01 Bed confinement status; Z85.118 Personal history of other malignant neoplasm of bronchus and lung
CPT/HCPCS: 36415; 36600; 70553; 71045; 71046; 71260; 71275; 74018; 74230; 76705; 78227; 80048; 80053; 80069; 80202; 80307; 81001; 81003; 82040; 82140; 82272; 82330; 82607; 82728; 82803; 83540; 83550; 83605; 83690; 83735; 83880; 84100; 84145; 84443; 84484; 85014; 85018; 85025; 85610; 85651; 85730; 86140; 86592; 86632; 86738; 86850; 86900; 86923; 87040; 87070; 87205; 87324; 87633; 93005; 93306; 96361; 96374; A9585; G0378; J0696; J1644; J1940; J2354; J2543; J2704; J3370; J3475; J3480; J3486; J7060; P9047; Q9967; A9537; C9113; C9898; J0295; J2060; J2370; J2805; J7030; J7040; J7050; J7120; P9016